=== PATIENT | female | born 1945 | race Caucasian/White ===

== ENCOUNTER → 2016-08-24 | Outpatient (CLI) | payer MEDICARE, BC ==
[~2016-08-24] MED LIST: ASPI325T4 PO; CARV12.52 PO; CHOL400C PO; FENO145T13 PO; FURO-92 PO; GLYB2.5T2 PO; INSU100C; INSU100V8 SQ; LEVO100C2 PO; MAGN400C PO; SITA100T PO; VALS160T3 PO
== END | disposition home or self-care (01) ==
LOC: WOUND 13:34
PROVIDERS: ATTEND Internal Medicine
DX: S01.80XD Unspecified open wound of other part of head, subsequent encounter (principal); E66.9 Obesity, unspecified; E78.5 Hyperlipidemia, unspecified; Z87.891 Personal history of nicotine dependence; Z85.828 Personal history of other malignant neoplasm of skin; Z72.89 Other problems related to lifestyle; Z68.35 Body mass index [BMI] 35.0-35.9, adult; X58.XXXD Exposure to other specified factors, subsequent encounter
CPT/HCPCS: 11100; G0463; WOU0463

== ENCOUNTER 2016-09-07 18:38 | Emergency (ER) | payer MEDICARE, BC ==
[~2016-09-07] VITALS: Ht 162.6 cm; Wt 92.8 kg
[2016-09-07] MEDS ORDERED: PLEASE ENTER HEIGHT AND WEIGHT MC SCH (19:00)
[2016-09-07] MEDS ORDERED: LIDOCAINE 2%, 20ML INFIL ONE (19:00)
[2016-09-07 19:29] LABS: ASPARTATE AMINO TRANSFERASE 21 U/L (15-37); BLOOD UREA NITROGEN 45 mg/dL (7-18)
[2016-09-07 21:47] VITALS: BP 143/60
== END 2016-09-07 21:50 | disposition home or self-care (01) ==
LOC: ED 21:36
DX: S06.0X1A Concussion with loss of consciousness of 30 minutes or less, initial encounter (principal); S01.01XA Laceration without foreign body of scalp, initial encounter; E78.5 Hyperlipidemia, unspecified; E03.9 Hypothyroidism, unspecified; E11.9 Type 2 diabetes mellitus without complications; I50.9 Heart failure, unspecified; N19 Unspecified kidney failure; R55 Syncope and collapse; Z90.49 Acquired absence of other specified parts of digestive tract; Z99.81 Dependence on supplemental oxygen; Z87.891 Personal history of nicotine dependence; W22.8XXA Striking against or struck by other objects, initial encounter; Y93.89 Activity, other specified; Y92.89 Other specified places as the place of occurrence of the external cause; Y99.8 Other external cause status
CPT/HCPCS: 36415; 70450; 71010; 80053; 85025; 93005; 99285

== ENCOUNTER → 2016-11-12 | Outpatient (CLI) | payer MEDICARE, BC ==
[2016-11-11 10:26] LABS: HEMATOCRIT 38.6 % (34.6-47.8); HEMOGLOBIN 12.3 g/dL (11.7-16.4); WHITE BLOOD COUNT 7.8 x10^3/uL (3.4-10)
[2016-11-11 10:38] LABS: BLOOD UREA NITROGEN 48 mg/dL (7-18)
[~2016-11-12] VITALS: Ht 162.6 cm; Wt 90.9 kg
[~2016-11-12] MED LIST changes: +ALLO100T30 PO; +ASPI325T17 PO; -ASPI325T4 PO; +ASPIRIN BUFFERED PO; +CHOL2000 PO; +FLUT15.88 NAS; +INSU100C SQ-INSULIN; +LEVO100T5 PO; +METO5TAB5 PO; +Oxygen INH
== END | disposition home or self-care (01) ==
LOC: CACL 09:55 → EDSTATUS 12:00
PROVIDERS: ATTEND Internal Medicine Cardiovascular Disease
DX: Z01.811 Encounter for preprocedural respiratory examination (principal); Z01.812 Encounter for preprocedural laboratory examination; R06.02 Shortness of breath; I27.2 Other secondary pulmonary hypertension; I12.9 Hypertensive chronic kidney disease with stage 1 through stage 4 chronic kidney disease, or unspecified chronic kidney disease; E11.22 Type 2 diabetes mellitus with diabetic chronic kidney disease; N18.4 Chronic kidney disease, stage 4 (severe); Z95.1 Presence of aortocoronary bypass graft; I50.32 Chronic diastolic (congestive) heart failure
CPT/HCPCS: 36415; 71020; 80048; 85025; 85610; 85730

== ENCOUNTER 2016-11-25 11:04 | Emergency (ER) | payer MEDICARE, BC ==
[~2016-11-25] VITALS: Ht 162.6 cm; Wt 94.1 kg
[2016-11-25 11:10] VITALS: BP 135/75
[2016-11-25] MEDS ORDERED: OXYcodone/APAP 5/325MG TABLET ONE (11:57)
[2016-11-25] MEDS ORDERED: OXYcodone/APAP 5/325MG TABLET PO ONE (12:00)
[2016-11-25 12:04] LABS: HEMATOCRIT 38.2 % (34.6-47.8); HEMOGLOBIN 12.2 g/dL (11.7-16.4); WHITE BLOOD COUNT 11.4 x10^3/uL (3.4-10)
[2016-11-25 12:15] LABS: BLOOD UREA NITROGEN 45 mg/dL (7-18)
[2016-11-25] MEDS ORDERED: ENOXAPARIN 100 MG/ML SQ ONE (13:30)
== END 2016-11-25 14:44 | disposition home or self-care (01) ==
LOC: ED 11:59 → EDIP 13:08 → UNDOADMIN 13:08 → ED 14:38
DX: S42.212A Unspecified displaced fracture of surgical neck of left humerus, initial encounter for closed fracture (principal); E78.5 Hyperlipidemia, unspecified; E11.9 Type 2 diabetes mellitus without complications; I50.9 Heart failure, unspecified; W05.1XXA Fall from non-moving nonmotorized scooter, initial encounter; Y93.89 Activity, other specified; Y92.098 Other place in other non-institutional residence as the place of occurrence of the external cause; Y99.8 Other external cause status; Z88.1 Allergy status to other antibiotic agents
CPT/HCPCS: 29105; 36415; 80048; 82040; 85025; 93005

== ENCOUNTER 2017-02-22 09:28 | Day surgery (SDC) | payer MEDICARE, BC ==
[2017-02-21 11:19] LABS: HEMATOCRIT 39.8 % (34.6-47.8); HEMOGLOBIN 12.8 g/dL (11.7-16.4); WHITE BLOOD COUNT 8.7 x10^3/uL (3.4-10)
[2017-02-21 11:48] LABS: BLOOD UREA NITROGEN 39 mg/dL (7-18)
[~2017-02-22] VITALS: Ht 162.6 cm; Wt 92.3 kg
[2017-02-22] MEDS ORDERED: FENTANYL PF 100 MCG/2ML ONE (10:12)
[2017-02-22] MEDS ORDERED: LIDOCAINE 2%, 20ML ONE (10:12)
[2017-02-22] MEDS ORDERED: MIDAZOLAM 1 MG/ML, 5ML ONE (10:12)
[2017-02-22] MEDS ORDERED: HEPARIN 1,000 UNITS/ML, 10ML ONE (10:12)
[2017-02-22] MEDS ORDERED: ADENOSINE IV PRN (12:00)
[2017-02-22] MEDS ORDERED: SODIUM CHLORIDE 0.9% IV PRN (12:00)
== END 2017-02-22 16:08 | disposition home or self-care (01) ==
LOC: CACL 09:28
PROVIDERS: ATTEND Internal Medicine Cardiovascular Disease
DX: I27.21 Secondary pulmonary arterial hypertension (principal); N18.4 Chronic kidney disease, stage 4 (severe); I12.9 Hypertensive chronic kidney disease with stage 1 through stage 4 chronic kidney disease, or unspecified chronic kidney disease; E11.22 Type 2 diabetes mellitus with diabetic chronic kidney disease; E78.5 Hyperlipidemia, unspecified; Z79.82 Long term (current) use of aspirin
CPT/HCPCS: 36415; 80048; 82962; 83880; 85025; 85610; 85730; 93451; 93463; 99156; 99157; C1769; C1894; J2250; J3010; J3490; J1644

== ENCOUNTER 2017-07-14 11:14 | Inpatient (IN) | payer BC, MEDICARE ==
[~2017-07-14] VITALS: Ht 162.6 cm; Wt 92.0 kg
[~2017-07-14 11:14] MED LIST changes: -FENO145T13 PO; +FENO145T30 PO
[2017-07-14] MEDS ORDERED: ALBUTEROL/IPRATROPIUM 2.5MG/0.5MG, 3 ML ONE (12:18)
[2017-07-14] MEDS ORDERED: ALBUTEROL/IPRATROPIUM 2.5MG/0.5MG, 3 ML NPPB ONE (12:30)
[2017-07-14] MEDS ORDERED: methylPREDNISolone SOD SUCC 125 MG/2 ML IVP ONE (12:30)
[2017-07-14] MEDS ORDERED: SODIUM CHLORIDE FLUSH 10ML SYR IVF ONE (12:30)
[2017-07-14 12:31] LABS: BASOPHILS # (AUTO) 0.01 x10^3/uL (0-0.1); BASOPHILS % (AUTO) 0 % (0-1); EOSINOPHILS # (AUTO) 0.13 x10^3/uL (0-0.4); EOSINOPHILS % (AUTO) 2 % (1-7); LYMPHOCYTES # (AUTO) 0.65 x10^3/uL (1-3.4); LYMPHOCYTES % (AUTO) 8 % (22-44); MD NO; MEAN CORPUSCULAR HEMOGLOBIN 28.6 pg (27.0-34.8); MEAN CORPUSCULAR HGB CONC 32.1 g/dL (32.4-35.8); MEAN CORPUSCULAR VOLUME 89.3 fL (80-100); MEAN PLATELET VOLUME 7.9 fL (7.4-10.4); MONOCYTES # (AUTO) 0.29 x10^3/uL (0.2-0.8); MONOCYTES % (AUTO) 3 % (2-9); NEUTROPHILS # (AUTO) 7.57 x10^3/uL (1.8-6.8); NEUTROPHILS % (AUTO) 88 % (42-75); PLATELET COUNT 232 x10^3/uL (130-400); RED BLOOD COUNT 3.98 x10^6/uL (3.82-5.3); RED CELL DISTRIBUTION WIDTH 18.5 % (9.6-15.2)
[2017-07-14] MEDS ORDERED: methylPREDNISolone SOD SUCC 125 MG/2 ML ONE (12:36)
[2017-07-14 12:43] LABS: ALBUMIN 3.6 g/dL (3.4-5.0); ANION GAP 5 mmol/L (5-15); CALCIUM 9.2 mg/dL (8.5-10.1); CHLORIDE 91 mmol/L (98-107); CREATININE 2.23 mg/dL (0.55-1.02)
[2017-07-14 12:48] LABS: TROPONIN I 0.113 ng/mL (0.000-0.045)
[2017-07-14] MEDS ORDERED: FUROSEMIDE 20 MG/2 ML ONE (13:53)
[2017-07-14] MEDS ORDERED: FUROSEMIDE 40 MG/4 ML IV ONE (14:00)
[2017-07-14] MEDS ORDERED: METO5TAB5 PO (14:06)
[2017-07-14] MEDS ORDERED: INSU100I32 SC (14:06)
[2017-07-14] MEDS ORDERED: TREP1TAB PO (14:16)
[2017-07-14] MEDS ORDERED: MACI10TA PO (14:16)
[2017-07-14 15:18] LABS: TROPONIN I 0.117 ng/mL (0.000-0.045)
[2017-07-14] MEDS ORDERED: hydrALAzine 20 MG/ML, 1ML IVPush PRN (15:30)
[2017-07-14] MEDS ORDERED: ONDANSETRON 2MG/ML, 2ML IVPush PRN (15:30)
[2017-07-14 16:09] LABS: ALBUMIN 3.7 g/dL (3.4-5.0); BILIRUBIN, DIRECT 0.7 mg/dL (0.1-0.2)
[2017-07-14 16:19] LABS: BILIRUBIN,INDIRECT 0.9 mg/dL (0.0-2.0); BILIRUBIN,TOTAL 1.6 mg/dL (0.2-1.0); FREE T4 (FREE THYROXINE) 0.7 ng/dL (0.76-1.46); THYROID STIMULATING HORMONE 7.01 mIU/L (0.358-3.740); TOTAL PROTEIN 8.2 g/dL (6.4-8.2)
[2017-07-14] MEDS ORDERED: TREPROSTINIL DIOLAMINE 1 MG PO SCH (18:00)
[2017-07-14] MEDS ORDERED: TEMPLATE NON-FORMULARY MED. ([Oxygen] 3 L) INH SCH (18:00)
[2017-07-14] MEDS ORDERED: POTASSIUM CHLORIDE 20 MEQ TAB.ER.PRT ONE (18:24)
[2017-07-14] MEDS ORDERED: FUROSEMIDE 40 MG/4 ML ONE (18:24)
[2017-07-14] MEDS: POTASSIUM CHLORIDE 20 MEQ TAB.ER.PRT PO SCH (18:30)
[2017-07-14] MEDS: FUROSEMIDE 40 MG/4 ML IV SCH (18:30)
[2017-07-14 20:37] LABS: TROPONIN I 0.107 ng/mL (0.000-0.045)
[2017-07-14] MEDS: INSULIN GLARGINE 100 UNITS/ML, PEN SQ-INSULIN SCH (21:00)
[2017-07-14] MEDS ORDERED: FUROSEMIDE 40 MG TABLET PO SCH (21:00)
[2017-07-14] MEDS: INSULIN LISPRO 100 UNITS/ML, PEN SQ-INSULIN SCH (21:00)
[2017-07-14 22:00] VITALS: BP 118/77
[2017-07-14] MEDS: TREPROSTINIL DIOLAMINE 1 MG PO SCH (23:03)
[2017-07-15 01:14] VITALS: BP 106/50
[2017-07-15 02:34] LABS: TROPONIN I 0.097 ng/mL (0.000-0.045)
[2017-07-15 05:04] LABS: MEAN CORPUSCULAR HEMOGLOBIN 27.9 pg (27.0-34.8); MEAN CORPUSCULAR HGB CONC 31.5 g/dL (32.4-35.8); MEAN CORPUSCULAR VOLUME 88.4 fL (80-100); MEAN PLATELET VOLUME 8.2 fL (7.4-10.4); PLATELET COUNT 214 x10^3/uL (130-400); RED BLOOD COUNT 3.68 x10^6/uL (3.82-5.3); RED CELL DISTRIBUTION WIDTH 18.2 % (9.6-15.2)
[2017-07-15 05:16] LABS: ALBUMIN 3.3 g/dL (3.4-5.0); ANION GAP 7 mmol/L (5-15); CALCIUM 9.2 mg/dL (8.5-10.1); CHLORIDE 89 mmol/L (98-107)
[2017-07-15 05:22] LABS: ALANINE AMINOTRANSFERASE 12 U/L (12-78); ALKALINE PHOSPHATASE 137 U/L (45-117); BILIRUBIN,TOTAL 1.3 mg/dL (0.2-1.0); CHOL/HDL RATIO 3.6; CHOLESTEROL, TOTAL 152 mg/dL (140-239); CREATININE 2.29 mg/dL (0.55-1.02); HDL CHOL % 28 % (28-40); HDL CHOLESTEROL (DIRECT) 42 mg/dL (40-60); LDL CHOLESTEROL,CALCULATED 92 mg/dL (54-169); LDL/HDL RATIO 2.2 (0.5-3.0); TOTAL PROTEIN 7.6 g/dL (6.4-8.2); TRIGLYCERIDES 89 mg/dL (50-200); VLDL CHOLESTEROL 18 mg/dL (0-25)
[2017-07-15 06:06] LABS: BASOPHILS # (AUTO) 0.02 x10^3/uL (0-0.1); BASOPHILS % (AUTO) 0 % (0-1); EOSINOPHILS % (AUTO) 0 % (1-7); LYMPHOCYTES % (AUTO) 5 % (22-44); MD SCAN; MONOCYTES # (AUTO) 0.03 x10^3/uL (0.2-0.8); MONOCYTES % (AUTO) 1 % (2-9); NEUTROPHILS % (AUTO) 94 % (42-75)
[2017-07-15] MEDS: INSULIN LISPRO 100 UNITS/ML, PEN SQ-INSULIN SCH ×4 (07:00→21:15)
[2017-07-15 07:15] LABS: HEMOGLOBIN A1C 6.7 % (4.2-6.3)
[2017-07-15 07:19] VITALS: BP 102/63
[2017-07-15] MEDS: ALLOPURINOL 100 MG TABLET PO SCH (08:15)
[2017-07-15] MEDS: FUROSEMIDE 40 MG/4 ML IV SCH ×2 (08:15→17:08)
[2017-07-15] MEDS: LEVOTHYROXINE 100 MCG TABLET PO SCH (08:15)
[2017-07-15] MEDS: POTASSIUM CHLORIDE 20 MEQ TAB.ER.PRT PO SCH (08:16)
[2017-07-15] MEDS: ASPIRIN 81 MG TABLET EC PO SCH (08:16)
[2017-07-15] MEDS: CHOLECALCIFEROL 1,000 UNIT TABLET PO SCH (08:16)
[2017-07-15] MEDS: TREPROSTINIL DIOLAMINE 1 MG PO SCH ×3 (08:17→22:13)
[2017-07-15] MEDS: METOLAZONE 5 MG TABLET PO SCH (08:17)
[2017-07-15] MEDS: MACITENTAN 10 MG HOMEMEDPO SCH (09:00)
[2017-07-15] MEDS: ENOXAPARIN 30 MG/0.3 ML SQ SCH (11:00)
[2017-07-15 14:18] VITALS: BP 116/66
[2017-07-15 21:10] VITALS: BP 109/64
[2017-07-15] MEDS: INSULIN GLARGINE 100 UNITS/ML, PEN SQ-INSULIN SCH (21:15)
[2017-07-16 02:24] VITALS: BP 130/76
[2017-07-16 05:10] LABS: ALBUMIN 3.4 g/dL (3.4-5.0); ANION GAP 5 mmol/L (5-15); CALCIUM 8.8 mg/dL (8.5-10.1); CHLORIDE 91 mmol/L (98-107)
[2017-07-16 05:14] LABS: ALANINE AMINOTRANSFERASE 14 U/L (12-78); ALKALINE PHOSPHATASE 117 U/L (45-117); CREATININE 2.52 mg/dL (0.55-1.02); TOTAL PROTEIN 7.3 g/dL (6.4-8.2)
[2017-07-16 05:15] LABS: BASOPHILS # (AUTO) 0.03 x10^3/uL (0-0.1); BASOPHILS % (AUTO) 0 % (0-1); EOSINOPHILS # (AUTO) 0.04 x10^3/uL (0-0.4); EOSINOPHILS % (AUTO) 0 % (1-7); LYMPHOCYTES % (AUTO) 7 % (22-44); MD NO; MEAN CORPUSCULAR HEMOGLOBIN 28.5 pg (27.0-34.8); MEAN CORPUSCULAR HGB CONC 31.8 g/dL (32.4-35.8); MEAN CORPUSCULAR VOLUME 89.8 fL (80-100); MONOCYTES # (AUTO) 0.47 x10^3/uL (0.2-0.8); MONOCYTES % (AUTO) 4 % (2-9); NEUTROPHILS # (AUTO) 10.27 x10^3/uL (1.8-6.8); NEUTROPHILS % (AUTO) 89 % (42-75); PLATELET COUNT 222 x10^3/uL (130-400); RED BLOOD COUNT 3.61 x10^6/uL (3.82-5.3); RED CELL DISTRIBUTION WIDTH 18.9 % (9.6-15.2)
[2017-07-16] MEDS: TREPROSTINIL DIOLAMINE 1 MG PO SCH ×3 (05:57→21:00)
[2017-07-16] MEDS: INSULIN LISPRO 100 UNITS/ML, PEN SQ-INSULIN SCH ×4 (07:00→21:00)
[2017-07-16] MEDS: FUROSEMIDE 40 MG/4 ML IV SCH (07:30)
[2017-07-16] MEDS: POTASSIUM CHLORIDE 20 MEQ TAB.ER.PRT PO SCH (08:00)
[2017-07-16 09:00] VITALS: BP 108/67
[2017-07-16] MEDS: ALLOPURINOL 100 MG TABLET PO SCH (09:00)
[2017-07-16] MEDS: CHOLECALCIFEROL 1,000 UNIT TABLET PO SCH (09:00)
[2017-07-16] MEDS: INSULIN GLARGINE 100 UNITS/ML, PEN SQ-INSULIN SCH ×2 (09:00→21:00)
[2017-07-16] MEDS: MACITENTAN 10 MG HOMEMEDPO SCH (09:00)
[2017-07-16] MEDS: LEVOTHYROXINE 100 MCG TABLET PO SCH (09:00)
[2017-07-16] MEDS: ASPIRIN 81 MG TABLET EC PO SCH (09:00)
[2017-07-16 09:51] LABS: CULTURE INDICATED? YES; MICROSCOPIC INDICATED
[2017-07-16] MEDS: ENOXAPARIN 30 MG/0.3 ML SQ SCH (11:00)
[2017-07-16 12:50] VITALS: BP 130/68
[2017-07-16 19:23] VITALS: BP 108/66
[2017-07-17 00:43] VITALS: BP 115/66
[2017-07-17 05:09] LABS: ALBUMIN 3.3 g/dL (3.4-5.0); ANION GAP 7 mmol/L (5-15); CALCIUM 8.5 mg/dL (8.5-10.1); CHLORIDE 90 mmol/L (98-107)
[2017-07-17 05:14] LABS: % IRON SATURATION 8 % (20-55); ALANINE AMINOTRANSFERASE 13 U/L (12-78); ALKALINE PHOSPHATASE 105 U/L (45-117); BILIRUBIN,TOTAL 1.1 mg/dL (0.2-1.0); CREATININE 2.51 mg/dL (0.55-1.02); IRON LEVEL 25 mcg/dL (50-170); TOTAL IRON BINDING CAPACITY 330 mcg/dL (250-450); TOTAL PROTEIN 6.8 g/dL (6.4-8.2)
[2017-07-17] MEDS: INSULIN LISPRO 100 UNITS/ML, PEN SQ-INSULIN SCH ×4 (07:00→20:04)
[2017-07-17] MEDS: ASPIRIN 81 MG TABLET EC PO SCH (08:09)
[2017-07-17] MEDS: INSULIN GLARGINE 100 UNITS/ML, PEN SQ-INSULIN SCH ×2 (08:09→20:03)
[2017-07-17] MEDS: ALLOPURINOL 100 MG TABLET PO SCH (08:09)
[2017-07-17] MEDS: POTASSIUM CHLORIDE 20 MEQ TAB.ER.PRT PO SCH (08:09)
[2017-07-17] MEDS: CHOLECALCIFEROL 1,000 UNIT TABLET PO SCH (08:09)
[2017-07-17] MEDS: TREPROSTINIL DIOLAMINE 1 MG PO SCH ×3 (08:11→20:04)
[2017-07-17 08:53] VITALS: BP 129/66
[2017-07-17] MEDS: LEVOTHYROXINE 100 MCG TABLET PO SCH (10:02)
[2017-07-17] MEDS: ENOXAPARIN 30 MG/0.3 ML SQ SCH (11:59)
[2017-07-17 13:35] VITALS: BP 102/63
[2017-07-17] MEDS: FERROUS SULFATE 325 MG TABLET PO SCH (17:19)
[2017-07-17] MEDS: CEFTRIAXONE 2 GM in DEXTROSE 5% 50 ML IV SCH (17:20)
[2017-07-17 21:46] VITALS: BP 177/82
[2017-07-18 00:05] VITALS: BP 120/70
[2017-07-18 05:00] LABS: BASOPHILS # (AUTO) 0.02 x10^3/uL (0-0.1); BASOPHILS % (AUTO) 0 % (0-1); EOSINOPHILS # (AUTO) 0.29 x10^3/uL (0-0.4); EOSINOPHILS % (AUTO) 3 % (1-7); LYMPHOCYTES # (AUTO) 0.97 x10^3/uL (1-3.4); LYMPHOCYTES % (AUTO) 11 % (22-44); MD NO; MEAN CORPUSCULAR HEMOGLOBIN 28.7 pg (27.0-34.8); MEAN CORPUSCULAR HGB CONC 32.3 g/dL (32.4-35.8); MEAN CORPUSCULAR VOLUME 88.7 fL (80-100); MONOCYTES # (AUTO) 0.39 x10^3/uL (0.2-0.8); MONOCYTES % (AUTO) 4 % (2-9); NEUTROPHILS % (AUTO) 81 % (42-75); PLATELET COUNT 201 x10^3/uL (130-400); RED BLOOD COUNT 3.45 x10^6/uL (3.82-5.3); RED CELL DISTRIBUTION WIDTH 18.1 % (9.6-15.2)
[2017-07-18 05:10] LABS: ALANINE AMINOTRANSFERASE 15 U/L (12-78); ALBUMIN 3.1 g/dL (3.4-5.0); ANION GAP 9 mmol/L (5-15); CALCIUM 8.4 mg/dL (8.5-10.1); CHLORIDE 90 mmol/L (98-107); CREATININE 2.22 mg/dL (0.55-1.02)
[2017-07-18 05:12] LABS: ALKALINE PHOSPHATASE 102 U/L (45-117); BILIRUBIN,TOTAL 0.7 mg/dL (0.2-1.0); TOTAL PROTEIN 6.8 g/dL (6.4-8.2)
[2017-07-18 07:17] VITALS: BP 124/63
[2017-07-18] MEDS: INSULIN GLARGINE 100 UNITS/ML, PEN SQ-INSULIN SCH ×2 (08:35→20:26)
[2017-07-18] MEDS: INSULIN LISPRO 100 UNITS/ML, PEN SQ-INSULIN SCH ×4 (08:35→20:25)
[2017-07-18] MEDS: ASPIRIN 81 MG TABLET EC PO SCH (08:36)
[2017-07-18] MEDS: CHOLECALCIFEROL 1,000 UNIT TABLET PO SCH (08:36)
[2017-07-18] MEDS: LEVOTHYROXINE 100 MCG TABLET PO SCH (08:36)
[2017-07-18] MEDS: POTASSIUM CHLORIDE 20 MEQ TAB.ER.PRT PO SCH (08:36)
[2017-07-18] MEDS: TREPROSTINIL DIOLAMINE 1 MG PO SCH ×3 (08:37→20:17)
[2017-07-18] MEDS: ALLOPURINOL 100 MG TABLET PO SCH (08:37)
[2017-07-18] MEDS: METOLAZONE 5 MG TABLET PO SCH (09:00)
[2017-07-18] MEDS ORDERED: FUROSEMIDE 40 MG/4 ML IV ONE (10:00)
[2017-07-18] MEDS: ENOXAPARIN 30 MG/0.3 ML SQ SCH (10:25)
[2017-07-18 14:00] VITALS: BP 125/67
[2017-07-18] MEDS: FERROUS SULFATE 325 MG TABLET PO SCH (16:58)
[2017-07-18] MEDS: CEFTRIAXONE 2 GM in DEXTROSE 5% 50 ML IV SCH (16:58)
[2017-07-18 20:20] VITALS: BP 110/53
[2017-07-19 00:04] VITALS: BP 114/62
[2017-07-19 05:32] LABS: BASOPHILS # (AUTO) 0.05 x10^3/uL (0-0.1); BASOPHILS % (AUTO) 1 % (0-1); EOSINOPHILS # (AUTO) 0.33 x10^3/uL (0-0.4); EOSINOPHILS % (AUTO) 4 % (1-7); LYMPHOCYTES # (AUTO) 0.77 x10^3/uL (1-3.4); LYMPHOCYTES % (AUTO) 9 % (22-44); MD NO; MEAN CORPUSCULAR HGB CONC 32.7 g/dL (32.4-35.8); MEAN CORPUSCULAR VOLUME 88.6 fL (80-100); MEAN PLATELET VOLUME 7.9 fL (7.4-10.4); MONOCYTES # (AUTO) 0.48 x10^3/uL (0.2-0.8); MONOCYTES % (AUTO) 5 % (2-9); NEUTROPHILS % (AUTO) 82 % (42-75); PLATELET COUNT 190 x10^3/uL (130-400); RED BLOOD COUNT 3.75 x10^6/uL (3.82-5.3); RED CELL DISTRIBUTION WIDTH 18.3 % (9.6-15.2)
[2017-07-19 05:38] LABS: ALANINE AMINOTRANSFERASE 14 U/L (12-78); ALBUMIN 3.3 g/dL (3.4-5.0); ANION GAP 6 mmol/L (5-15); CALCIUM 8.9 mg/dL (8.5-10.1); CHLORIDE 91 mmol/L (98-107)
[2017-07-19 05:41] LABS: ALKALINE PHOSPHATASE 109 U/L (45-117); BILIRUBIN,TOTAL 0.9 mg/dL (0.2-1.0); CREATININE 2.14 mg/dL (0.55-1.02); TOTAL PROTEIN 7.3 g/dL (6.4-8.2)
[2017-07-19] MEDS: INSULIN LISPRO 100 UNITS/ML, PEN SQ-INSULIN SCH ×4 (07:00→20:51)
[2017-07-19] MEDS: INSULIN GLARGINE 100 UNITS/ML, PEN SQ-INSULIN SCH ×2 (07:38→20:51)
[2017-07-19] MEDS: POTASSIUM CHLORIDE 20 MEQ TAB.ER.PRT PO SCH (08:06)
[2017-07-19] MEDS: TREPROSTINIL DIOLAMINE 1 MG PO SCH ×3 (08:07→20:45)
[2017-07-19] MEDS: LEVOTHYROXINE 100 MCG TABLET PO SCH (08:07)
[2017-07-19] MEDS: ALLOPURINOL 100 MG TABLET PO SCH (08:07)
[2017-07-19] MEDS: ASPIRIN 81 MG TABLET EC PO SCH (08:07)
[2017-07-19] MEDS: CHOLECALCIFEROL 1,000 UNIT TABLET PO SCH (08:07)
[2017-07-19 08:20] VITALS: BP 114/64
[2017-07-19] MEDS ORDERED: AcetaZOLAMIDE INJ 500 MG IVPush SCH (08:30)
[2017-07-19] MEDS: ENOXAPARIN 30 MG/0.3 ML SQ SCH (11:50)
[2017-07-19] MEDS ORDERED: FUROSEMIDE 40 MG/4 ML IV ONE (14:00)
[2017-07-19 15:06] VITALS: BP 124/73
[2017-07-19] MEDS: FERROUS SULFATE 325 MG TABLET PO SCH (16:30)
[2017-07-19 18:21] VITALS: BP 111/54
[2017-07-19] MEDS: CEFTRIAXONE 2 GM in DEXTROSE 5% 50 ML IV SCH (18:45)
[2017-07-20 01:08] VITALS: BP 121/69
[2017-07-20 05:17] LABS: BASOPHILS # (AUTO) 0.05 x10^3/uL (0-0.1); BASOPHILS % (AUTO) 1 % (0-1); EOSINOPHILS # (AUTO) 0.27 x10^3/uL (0-0.4); EOSINOPHILS % (AUTO) 4 % (1-7); LYMPHOCYTES # (AUTO) 0.76 x10^3/uL (1-3.4); LYMPHOCYTES % (AUTO) 10 % (22-44); MD NO; MEAN CORPUSCULAR HEMOGLOBIN 27.9 pg (27.0-34.8); MEAN CORPUSCULAR HGB CONC 31.8 g/dL (32.4-35.8); MEAN CORPUSCULAR VOLUME 87.9 fL (80-100); MEAN PLATELET VOLUME 8.5 fL (7.4-10.4); MONOCYTES # (AUTO) 0.43 x10^3/uL (0.2-0.8); MONOCYTES % (AUTO) 6 % (2-9); NEUTROPHILS # (AUTO) 6.24 x10^3/uL (1.8-6.8); NEUTROPHILS % (AUTO) 81 % (42-75); PLATELET COUNT 177 x10^3/uL (130-400); RED CELL DISTRIBUTION WIDTH 18.3 % (9.6-15.2)
[2017-07-20 05:25] LABS: ALANINE AMINOTRANSFERASE 11 U/L (12-78); ALBUMIN 3.2 g/dL (3.4-5.0); ANION GAP 5 mmol/L (5-15); CALCIUM 8.9 mg/dL (8.5-10.1); CHLORIDE 94 mmol/L (98-107); CREATININE 2.07 mg/dL (0.55-1.02)
[2017-07-20 05:27] LABS: ALKALINE PHOSPHATASE 110 U/L (45-117); BILIRUBIN,TOTAL 0.8 mg/dL (0.2-1.0)
[2017-07-20] MEDS: INSULIN LISPRO 100 UNITS/ML, PEN SQ-INSULIN SCH ×4 (07:00→20:55)
[2017-07-20 07:38] VITALS: BP 110/68
[2017-07-20] MEDS: ASPIRIN 81 MG TABLET EC PO SCH (08:52)
[2017-07-20] MEDS: LEVOTHYROXINE 100 MCG TABLET PO SCH (08:52)
[2017-07-20] MEDS: POTASSIUM CHLORIDE 20 MEQ TAB.ER.PRT PO SCH (08:52)
[2017-07-20] MEDS: CHOLECALCIFEROL 1,000 UNIT TABLET PO SCH (08:52)
[2017-07-20] MEDS: ALLOPURINOL 100 MG TABLET PO SCH (08:53)
[2017-07-20] MEDS: INSULIN GLARGINE 100 UNITS/ML, PEN SQ-INSULIN SCH ×2 (08:54→20:54)
[2017-07-20] MEDS: LORATADINE 10 MG HOMEMEDPO SCH (08:54)
[2017-07-20] MEDS: TREPROSTINIL DIOLAMINE 1 MG PO SCH ×3 (08:55→20:53)
[2017-07-20] MEDS ORDERED: AcetaZOLAMIDE INJ 500 MG IVPush SCH (09:00)
[2017-07-20] MEDS: ENOXAPARIN 30 MG/0.3 ML SQ SCH (12:03)
[2017-07-20 13:00] VITALS: BP 96/56
[2017-07-20] MEDS ORDERED: FUROSEMIDE 40 MG/4 ML IV ONE (14:00)
[2017-07-20] MEDS: FERROUS SULFATE 325 MG TABLET PO SCH (16:36)
[2017-07-20] MEDS: CEFTRIAXONE 2 GM in DEXTROSE 5% 50 ML IV SCH (17:28)
[2017-07-20 19:34] VITALS: BP 118/62
[2017-07-21 00:19] VITALS: BP 104/89
[2017-07-21 05:33] LABS: ALBUMIN 3.2 g/dL (3.4-5.0); ANION GAP 5 mmol/L (5-15); CALCIUM 9.1 mg/dL (8.5-10.1); CHLORIDE 93 mmol/L (98-107)
[2017-07-21 05:37] LABS: ALANINE AMINOTRANSFERASE 13 U/L (12-78); ALKALINE PHOSPHATASE 110 U/L (45-117); BILIRUBIN,TOTAL 0.8 mg/dL (0.2-1.0); CREATININE 2.26 mg/dL (0.55-1.02); TOTAL PROTEIN 7.2 g/dL (6.4-8.2)
[2017-07-21] MEDS: INSULIN LISPRO 100 UNITS/ML, PEN SQ-INSULIN SCH ×4 (07:00→20:38)
[2017-07-21 08:29] VITALS: BP 95/53
[2017-07-21] MEDS ORDERED: AcetaZOLAMIDE INJ 500 MG IVPush SCH (08:30)
[2017-07-21 08:54] VITALS: BP 103/55
[2017-07-21] MEDS: ALLOPURINOL 100 MG TABLET PO SCH (08:57)
[2017-07-21] MEDS: POTASSIUM CHLORIDE 20 MEQ TAB.ER.PRT PO SCH (08:57)
[2017-07-21] MEDS: INSULIN GLARGINE 100 UNITS/ML, PEN SQ-INSULIN SCH ×2 (08:57→20:37)
[2017-07-21] MEDS: ASPIRIN 81 MG TABLET EC PO SCH (08:57)
[2017-07-21] MEDS: CHOLECALCIFEROL 1,000 UNIT TABLET PO SCH (08:57)
[2017-07-21] MEDS: LEVOTHYROXINE 100 MCG TABLET PO SCH (08:57)
[2017-07-21] MEDS: TREPROSTINIL DIOLAMINE 1 MG PO SCH ×3 (09:00→20:38)
[2017-07-21] MEDS: LORATADINE 10 MG HOMEMEDPO SCH (09:00)
[2017-07-21 12:27] VITALS: BP 117/63
[2017-07-21] MEDS: ENOXAPARIN 30 MG/0.3 ML SQ SCH (12:32)
[2017-07-21] MEDS: FERROUS SULFATE 325 MG TABLET PO SCH (17:35)
[2017-07-21] MEDS: CEFTRIAXONE 2 GM in DEXTROSE 5% 50 ML IV SCH (18:08)
[2017-07-21 19:14] VITALS: BP 113/54
[2017-07-22 00:27] VITALS: BP 112/64
[2017-07-22 05:27] LABS: CHLORIDE 93 mmol/L (98-107)
[2017-07-22 05:36] LABS: ALANINE AMINOTRANSFERASE 12 U/L (12-78); ALBUMIN 3.2 g/dL (3.4-5.0); ALKALINE PHOSPHATASE 109 U/L (45-117); ANION GAP 7 mmol/L (5-15); BILIRUBIN,TOTAL 0.9 mg/dL (0.2-1.0); CALCIUM 8.8 mg/dL (8.5-10.1); CREATININE 2.04 mg/dL (0.55-1.02)
[2017-07-22 06:41] VITALS: BP 109/57
[2017-07-22] MEDS: INSULIN LISPRO 100 UNITS/ML, PEN SQ-INSULIN SCH ×4 (07:00→20:33)
[2017-07-22] MEDS: POTASSIUM CHLORIDE 20 MEQ TAB.ER.PRT PO SCH (08:54)
[2017-07-22] MEDS: INSULIN GLARGINE 100 UNITS/ML, PEN SQ-INSULIN SCH ×2 (08:54→21:07)
[2017-07-22] MEDS: ASPIRIN 81 MG TABLET EC PO SCH (08:55)
[2017-07-22] MEDS: LORATADINE 10 MG HOMEMEDPO SCH (08:55)
[2017-07-22] MEDS: LEVOTHYROXINE 100 MCG TABLET PO SCH (08:55)
[2017-07-22] MEDS: TREPROSTINIL DIOLAMINE 1 MG PO SCH ×3 (08:55→21:00)
[2017-07-22] MEDS: ALLOPURINOL 100 MG TABLET PO SCH (08:55)
[2017-07-22] MEDS: CHOLECALCIFEROL 1,000 UNIT TABLET PO SCH (08:55)
[2017-07-22] MEDS: AcetaZOLAMIDE INJ 500 MG IVPush SCH (09:59)
[2017-07-22] MEDS: FERROUS SULFATE 325 MG TABLET PO SCH ×2 (12:00→16:25)
[2017-07-22] MEDS: ENOXAPARIN 30 MG/0.3 ML SQ SCH (13:01)
[2017-07-22 14:01] VITALS: BP 118/53
[2017-07-22] MEDS ORDERED: FUROSEMIDE 20 MG/2 ML IV ONE (17:00)
[2017-07-22] MEDS: CEFTRIAXONE 2 GM in DEXTROSE 5% 50 ML IV SCH (17:58)
[2017-07-22 19:01] VITALS: BP 122/65
[2017-07-23 01:15] VITALS: BP 110/64
[2017-07-23 04:53] LABS: ALBUMIN 3.1 g/dL (3.4-5.0); ANION GAP 7 mmol/L (5-15); CALCIUM 8.8 mg/dL (8.5-10.1); CHLORIDE 95 mmol/L (98-107); CREATININE 1.92 mg/dL (0.55-1.02)
[2017-07-23 04:55] LABS: ALANINE AMINOTRANSFERASE 10 U/L (12-78); ALKALINE PHOSPHATASE 111 U/L (45-117); BILIRUBIN,TOTAL 0.7 mg/dL (0.2-1.0); TOTAL PROTEIN 6.9 g/dL (6.4-8.2)
[2017-07-23] MEDS: INSULIN LISPRO 100 UNITS/ML, PEN SQ-INSULIN SCH ×4 (07:12→20:30)
[2017-07-23 08:45] VITALS: BP 118/58
[2017-07-23] MEDS: LORATADINE 10 MG HOMEMEDPO SCH (09:00)
[2017-07-23] MEDS: CHOLECALCIFEROL 1,000 UNIT TABLET PO SCH (09:14)
[2017-07-23] MEDS: LEVOTHYROXINE 100 MCG TABLET PO SCH (09:15)
[2017-07-23] MEDS: ASPIRIN 81 MG TABLET EC PO SCH (09:15)
[2017-07-23] MEDS: POTASSIUM CHLORIDE 20 MEQ TAB.ER.PRT PO SCH (09:15)
[2017-07-23] MEDS: ALLOPURINOL 100 MG TABLET PO SCH (09:15)
[2017-07-23] MEDS: ENOXAPARIN 30 MG/0.3 ML SQ SCH (09:16)
[2017-07-23] MEDS: AcetaZOLAMIDE INJ 500 MG IVPush SCH (09:17)
[2017-07-23] MEDS: TREPROSTINIL DIOLAMINE 1 MG PO SCH ×3 (09:17→20:30)
[2017-07-23] MEDS: INSULIN GLARGINE 100 UNITS/ML, PEN SQ-INSULIN SCH ×2 (11:41→20:30)
[2017-07-23] MEDS: FERROUS SULFATE 325 MG TABLET PO SCH ×2 (11:42→17:24)
[2017-07-23 14:53] VITALS: BP 108/59
[2017-07-23] MEDS: CEFTRIAXONE 2 GM in DEXTROSE 5% 50 ML IV SCH (17:25)
[2017-07-23 20:00] VITALS: BP 106/62
[2017-07-24 02:54] VITALS: BP 113/62
[2017-07-24 05:10] LABS: ALANINE AMINOTRANSFERASE 12 U/L (12-78); ALBUMIN 3.2 g/dL (3.4-5.0); ANION GAP 5 mmol/L (5-15); CALCIUM 8.8 mg/dL (8.5-10.1); CHLORIDE 93 mmol/L (98-107); CREATININE 1.97 mg/dL (0.55-1.02)
[2017-07-24 05:11] LABS: ALKALINE PHOSPHATASE 119 U/L (45-117); BILIRUBIN,TOTAL 0.8 mg/dL (0.2-1.0); TOTAL PROTEIN 7.1 g/dL (6.4-8.2)
[2017-07-24] MEDS: INSULIN LISPRO 100 UNITS/ML, PEN SQ-INSULIN SCH ×4 (07:00→20:53)
[2017-07-24 07:38] VITALS: BP 111/59
[2017-07-24] MEDS: ASPIRIN 81 MG TABLET EC PO SCH (07:53)
[2017-07-24] MEDS: CHOLECALCIFEROL 1,000 UNIT TABLET PO SCH (07:54)
[2017-07-24] MEDS: POTASSIUM CHLORIDE 20 MEQ TAB.ER.PRT PO SCH (07:54)
[2017-07-24] MEDS: AcetaZOLAMIDE INJ 500 MG IVPush SCH (07:54)
[2017-07-24] MEDS: INSULIN GLARGINE 100 UNITS/ML, PEN SQ-INSULIN SCH ×2 (07:54→21:07)
[2017-07-24] MEDS: ALLOPURINOL 100 MG TABLET PO SCH (07:54)
[2017-07-24] MEDS: LEVOTHYROXINE 100 MCG TABLET PO SCH (07:54)
[2017-07-24] MEDS: LORATADINE 10 MG HOMEMEDPO SCH (07:55)
[2017-07-24] MEDS: TREPROSTINIL DIOLAMINE 1 MG PO SCH ×3 (08:00→21:00)
[2017-07-24 11:26] LABS: ALANINE AMINOTRANSFERASE 11 U/L (12-78); ALBUMIN 3.2 g/dL (3.4-5.0); ANION GAP 5 mmol/L (5-15); CALCIUM 8.8 mg/dL (8.5-10.1); CHLORIDE 95 mmol/L (98-107); CREATININE 1.95 mg/dL (0.55-1.02)
[2017-07-24 11:29] LABS: ALKALINE PHOSPHATASE 120 U/L (45-117); BILIRUBIN,TOTAL 0.5 mg/dL (0.2-1.0); TOTAL PROTEIN 7.3 g/dL (6.4-8.2)
[2017-07-24] MEDS: ENOXAPARIN 30 MG/0.3 ML SQ SCH (11:33)
[2017-07-24] MEDS: FERROUS SULFATE 325 MG TABLET PO SCH ×2 (12:41→16:41)
[2017-07-24 13:33] VITALS: BP 111/61
[2017-07-24 18:57] VITALS: BP 106/62
[2017-07-24] MEDS: SULFAMETH./TRIMETHOPRIM DS 800MG/160MG TABLET PO SCH (21:07)
[2017-07-24] MEDS: HEPARIN 5,000 UNITS/ML, 1ML SQ SCH (21:08)
[2017-07-25 01:10] VITALS: BP 120/62
[2017-07-25 05:23] LABS: CHLORIDE 96 mmol/L (98-107)
[2017-07-25 05:39] LABS: ALANINE AMINOTRANSFERASE 12 U/L (12-78); ALBUMIN 3.3 g/dL (3.4-5.0); ALKALINE PHOSPHATASE 121 U/L (45-117); ANION GAP 6 mmol/L (5-15); BILIRUBIN,TOTAL 0.9 mg/dL (0.2-1.0); CREATININE 1.95 mg/dL (0.55-1.02); TOTAL PROTEIN 7.6 g/dL (6.4-8.2)
[2017-07-25] MEDS: HEPARIN 5,000 UNITS/ML, 1ML SQ SCH ×3 (06:08→21:47)
[2017-07-25] MEDS: INSULIN LISPRO 100 UNITS/ML, PEN SQ-INSULIN SCH ×4 (07:00→21:48)
[2017-07-25 07:25] VITALS: BP 108/68
[2017-07-25] MEDS ORDERED: AcetaZOLAMIDE INJ 500 MG IVPush ONE (09:00)
[2017-07-25] MEDS: SULFAMETH./TRIMETHOPRIM DS 800MG/160MG TABLET PO SCH ×2 (09:01→21:48)
[2017-07-25] MEDS: ALLOPURINOL 100 MG TABLET PO SCH (09:02)
[2017-07-25] MEDS: CHOLECALCIFEROL 1,000 UNIT TABLET PO SCH (09:02)
[2017-07-25] MEDS: POTASSIUM CHLORIDE 20 MEQ TAB.ER.PRT PO SCH (09:02)
[2017-07-25] MEDS: LORATADINE 10 MG TABLET HOMEMEDPO SCH (09:02)
[2017-07-25] MEDS: LEVOTHYROXINE 100 MCG TABLET PO SCH (09:02)
[2017-07-25] MEDS: INSULIN GLARGINE 100 UNITS/ML, PEN SQ-INSULIN SCH ×2 (09:03→21:48)
[2017-07-25] MEDS: TREPROSTINIL DIOLAMINE 1 MG PO SCH ×3 (09:04→21:49)
[2017-07-25] MEDS ORDERED: FUROSEMIDE 40 MG TABLET ONE (09:18)
[2017-07-25] MEDS: ASPIRIN 81 MG TABLET EC PO SCH (09:20)
[2017-07-25 13:25] VITALS: BP 104/58
[2017-07-25] MEDS: FERROUS SULFATE 325 MG TABLET PO SCH ×2 (13:50→18:05)
[2017-07-25] MEDS ORDERED: FUROSEMIDE 40 MG/4 ML IV ONE (16:00)
[2017-07-25 18:34] VITALS: BP 109/65
[2017-07-26 01:11] VITALS: BP 100/62
[2017-07-26 05:04] LABS: ALBUMIN 3.1 g/dL (3.4-5.0); ANION GAP 5 mmol/L (5-15); CALCIUM 9.2 mg/dL (8.5-10.1); CHLORIDE 98 mmol/L (98-107)
[2017-07-26 05:07] LABS: ALANINE AMINOTRANSFERASE 12 U/L (12-78); ALKALINE PHOSPHATASE 114 U/L (45-117); BILIRUBIN,TOTAL 0.7 mg/dL (0.2-1.0); CREATININE 2.15 mg/dL (0.55-1.02)
[2017-07-26] MEDS: HEPARIN 5,000 UNITS/ML, 1ML SQ SCH ×3 (05:36→21:17)
[2017-07-26] MEDS: TORSEMIDE 20 MG TABLET PO SCH ×3 (07:00→09:00)
[2017-07-26] MEDS: INSULIN LISPRO 100 UNITS/ML, PEN SQ-INSULIN SCH ×4 (07:00→21:17)
[2017-07-26 07:27] VITALS: BP 106/61
[2017-07-26] MEDS: ALLOPURINOL 100 MG TABLET PO SCH (08:20)
[2017-07-26] MEDS: ASPIRIN 81 MG TABLET EC PO SCH (08:20)
[2017-07-26] MEDS: LEVOTHYROXINE 100 MCG TABLET PO SCH (08:20)
[2017-07-26] MEDS: LORATADINE 10 MG TABLET HOMEMEDPO SCH (08:21)
[2017-07-26] MEDS: POTASSIUM CHLORIDE 20 MEQ TAB.ER.PRT PO SCH (08:22)
[2017-07-26] MEDS: CHOLECALCIFEROL 1,000 UNIT TABLET PO SCH (08:22)
[2017-07-26] MEDS: SULFAMETH./TRIMETHOPRIM DS 800MG/160MG TABLET PO SCH (08:22)
[2017-07-26] MEDS: INSULIN GLARGINE 100 UNITS/ML, PEN SQ-INSULIN SCH ×2 (08:23→21:17)
[2017-07-26] MEDS: TREPROSTINIL DIOLAMINE 1 MG PO SCH ×3 (08:23→21:18)
[2017-07-26] MEDS: FERROUS SULFATE 325 MG TABLET PO SCH ×2 (11:48→17:09)
[2017-07-26 13:04] VITALS: BP 116/67
[2017-07-26 19:20] VITALS: BP 106/66
[2017-07-27 01:53] VITALS: BP 131/67
[2017-07-27] MEDS: HEPARIN 5,000 UNITS/ML, 1ML SQ SCH ×3 (05:03→22:11)
[2017-07-27 05:12] LABS: CALCIUM 8.8 mg/dL (8.5-10.1); CHLORIDE 98 mmol/L (98-107)
[2017-07-27 05:18] LABS: ALANINE AMINOTRANSFERASE 11 U/L (12-78); ALKALINE PHOSPHATASE 112 U/L (45-117); ANION GAP 7 mmol/L (5-15); BILIRUBIN,TOTAL 0.8 mg/dL (0.2-1.0); CREATININE 2.36 mg/dL (0.55-1.02); TOTAL PROTEIN 6.8 g/dL (6.4-8.2)
[2017-07-27 07:06] VITALS: BP 111/68
[2017-07-27] MEDS: INSULIN LISPRO 100 UNITS/ML, PEN SQ-INSULIN SCH ×4 (08:17→22:13)
[2017-07-27] MEDS: LEVOTHYROXINE 100 MCG TABLET PO SCH (09:23)
[2017-07-27] MEDS: ALLOPURINOL 100 MG TABLET PO SCH (09:23)
[2017-07-27] MEDS: POTASSIUM CHLORIDE 20 MEQ TAB.ER.PRT PO SCH (09:23)
[2017-07-27] MEDS: CHOLECALCIFEROL 1,000 UNIT TABLET PO SCH (09:23)
[2017-07-27] MEDS: TORSEMIDE 20 MG TABLET PO SCH (09:24)
[2017-07-27] MEDS: ASPIRIN 81 MG TABLET EC PO SCH (09:24)
[2017-07-27] MEDS: INSULIN GLARGINE 100 UNITS/ML, PEN SQ-INSULIN SCH ×2 (09:25→22:12)
[2017-07-27] MEDS: LORATADINE 10 MG TABLET HOMEMEDPO SCH (09:25)
[2017-07-27] MEDS: TREPROSTINIL DIOLAMINE 1 MG PO SCH ×3 (09:26→22:12)
[2017-07-27] MEDS: FERROUS SULFATE 325 MG TABLET PO SCH ×2 (12:48→17:27)
[2017-07-27 14:00] VITALS: BP 116/71
[2017-07-27] MEDS ORDERED: FUROSEMIDE 40 MG/4 ML IV ONE (14:00)
[2017-07-27] MEDS: FLUTICASONE NASAL SPRAY 16GM NAS SCH ×2 (14:12→22:12)
[2017-07-27 19:39] VITALS: BP 112/66
[2017-07-28 01:47] VITALS: BP 119/63
[2017-07-28 05:00] LABS: ALBUMIN 3.1 g/dL (3.4-5.0); ANION GAP 7 mmol/L (5-15); CALCIUM 8.3 mg/dL (8.5-10.1); CHLORIDE 97 mmol/L (98-107)
[2017-07-28 05:05] LABS: ALANINE AMINOTRANSFERASE 13 U/L (12-78); ALKALINE PHOSPHATASE 115 U/L (45-117); BILIRUBIN,TOTAL 0.7 mg/dL (0.2-1.0); CREATININE 2.41 mg/dL (0.55-1.02); TOTAL PROTEIN 6.7 g/dL (6.4-8.2)
[2017-07-28] MEDS: HEPARIN 5,000 UNITS/ML, 1ML SQ SCH ×3 (06:19→22:34)
[2017-07-28] MEDS: TREPROSTINIL DIOLAMINE 1 MG PO SCH ×3 (06:19→22:00)
[2017-07-28] MEDS: LEVOTHYROXINE 100 MCG TABLET PO SCH (06:19)
[2017-07-28] MEDS: INSULIN LISPRO 100 UNITS/ML, PEN SQ-INSULIN SCH ×4 (07:40→21:31)
[2017-07-28 08:30] VITALS: BP 112/58
[2017-07-28] MEDS: CHOLECALCIFEROL 1,000 UNIT TABLET PO SCH (08:35)
[2017-07-28] MEDS: LORATADINE 10 MG TABLET HOMEMEDPO SCH (08:35)
[2017-07-28] MEDS: POTASSIUM CHLORIDE 20 MEQ TAB.ER.PRT PO SCH (08:35)
[2017-07-28] MEDS: ASPIRIN 81 MG TABLET EC PO SCH (08:44)
[2017-07-28] MEDS: ALLOPURINOL 100 MG TABLET PO SCH (08:45)
[2017-07-28] MEDS: INSULIN GLARGINE 100 UNITS/ML, PEN SQ-INSULIN SCH ×2 (08:45→21:31)
[2017-07-28] MEDS: FLUTICASONE NASAL SPRAY 16GM NAS SCH ×2 (08:45→21:29)
[2017-07-28] MEDS: FUROSEMIDE 40 MG/4 ML IV SCH ×2 (10:30→17:18)
[2017-07-28] MEDS: FERROUS SULFATE 325 MG TABLET PO SCH ×2 (12:29→17:18)
[2017-07-28 14:30] VITALS: BP 113/56
[2017-07-28 18:46] VITALS: BP 106/62
[2017-07-29 01:24] VITALS: BP 101/59
[2017-07-29 05:17] LABS: BASOPHILS # (AUTO) 0.08 x10^3/uL (0-0.1); BASOPHILS % (AUTO) 1 % (0-1); EOSINOPHILS # (AUTO) 0.36 x10^3/uL (0-0.4); EOSINOPHILS % (AUTO) 6 % (1-7); LYMPHOCYTES # (AUTO) 0.61 x10^3/uL (1-3.4); LYMPHOCYTES % (AUTO) 9 % (22-44); MD NO; MEAN CORPUSCULAR HEMOGLOBIN 28.7 pg (27.0-34.8); MEAN CORPUSCULAR HGB CONC 31.9 g/dL (32.4-35.8); MEAN PLATELET VOLUME 9.7 fL (7.4-10.4); MONOCYTES # (AUTO) 0.34 x10^3/uL (0.2-0.8); MONOCYTES % (AUTO) 5 % (2-9); NEUTROPHILS # (AUTO) 5.17 x10^3/uL (1.8-6.8); NEUTROPHILS % (AUTO) 79 % (42-75); PLATELET COUNT 168 x10^3/uL (130-400); RED BLOOD COUNT 3.49 x10^6/uL (3.82-5.3); RED CELL DISTRIBUTION WIDTH 19.1 % (9.6-15.2)
[2017-07-29 05:27] LABS: CHLORIDE 98 mmol/L (98-107)
[2017-07-29 05:39] LABS: ALANINE AMINOTRANSFERASE 14 U/L (12-78); ALBUMIN 3.1 g/dL (3.4-5.0); ALKALINE PHOSPHATASE 116 U/L (45-117); ANION GAP 8 mmol/L (5-15); BILIRUBIN,TOTAL 0.9 mg/dL (0.2-1.0); CALCIUM 8.5 mg/dL (8.5-10.1); CREATININE 2.37 mg/dL (0.55-1.02); TOTAL PROTEIN 6.7 g/dL (6.4-8.2)
[2017-07-29] MEDS: TREPROSTINIL DIOLAMINE 1 MG PO SCH ×3 (06:00→21:11)
[2017-07-29] MEDS: LEVOTHYROXINE 100 MCG TABLET PO SCH (06:06)
[2017-07-29] MEDS: HEPARIN 5,000 UNITS/ML, 1ML SQ SCH ×3 (06:06→21:11)
[2017-07-29] MEDS: INSULIN LISPRO 100 UNITS/ML, PEN SQ-INSULIN SCH ×4 (07:07→21:12)
[2017-07-29 08:30] VITALS: BP 108/68
[2017-07-29] MEDS ORDERED: FUROSEMIDE 40 MG/4 ML IV SCH (08:30)
[2017-07-29] MEDS: ASPIRIN 81 MG TABLET EC PO SCH (08:53)
[2017-07-29] MEDS: POTASSIUM CHLORIDE 20 MEQ TAB.ER.PRT PO SCH (08:53)
[2017-07-29] MEDS: CHOLECALCIFEROL 1,000 UNIT TABLET PO SCH (08:53)
[2017-07-29] MEDS: ALLOPURINOL 100 MG TABLET PO SCH (08:53)
[2017-07-29] MEDS: INSULIN GLARGINE 100 UNITS/ML, PEN SQ-INSULIN SCH ×2 (08:54→21:11)
[2017-07-29] MEDS: LORATADINE 10 MG TABLET HOMEMEDPO SCH (08:54)
[2017-07-29] MEDS: FLUTICASONE NASAL SPRAY 16GM NAS SCH ×2 (09:02→21:15)
[2017-07-29] MEDS: FERROUS SULFATE 325 MG TABLET PO SCH ×2 (12:13→16:51)
[2017-07-29 13:26] VITALS: BP 110/60
[2017-07-29] MEDS ORDERED: FUROSEMIDE 40 MG/4 ML IV ONE (17:00)
[2017-07-29 19:18] VITALS: BP 112/63
[2017-07-30 00:17] VITALS: BP 108/64
[2017-07-30] MEDS: TREPROSTINIL DIOLAMINE 1 MG PO SCH ×3 (05:02→21:10)
[2017-07-30] MEDS: LEVOTHYROXINE 100 MCG TABLET PO SCH (05:02)
[2017-07-30] MEDS: HEPARIN 5,000 UNITS/ML, 1ML SQ SCH ×3 (05:02→21:09)
[2017-07-30 05:38] LABS: CHLORIDE 100 mmol/L (98-107)
[2017-07-30 05:49] LABS: ALANINE AMINOTRANSFERASE 14 U/L (12-78); ALBUMIN 3.2 g/dL (3.4-5.0); ALKALINE PHOSPHATASE 120 U/L (45-117); ANION GAP 4 mmol/L (5-15); BILIRUBIN,TOTAL 0.9 mg/dL (0.2-1.0); CALCIUM 9.3 mg/dL (8.5-10.1); CREATININE 2.39 mg/dL (0.55-1.02); TOTAL PROTEIN 7.2 g/dL (6.4-8.2)
[2017-07-30] MEDS: INSULIN LISPRO 100 UNITS/ML, PEN SQ-INSULIN SCH ×4 (07:07→21:09)
[2017-07-30] MEDS ORDERED: AcetaZOLAMIDE INJ 500 MG IVPush ONE (07:30)
[2017-07-30 09:08] VITALS: BP 101/59
[2017-07-30] MEDS: POTASSIUM CHLORIDE 20 MEQ TAB.ER.PRT PO SCH (09:15)
[2017-07-30] MEDS: FLUTICASONE NASAL SPRAY 16GM NAS SCH ×2 (09:16→21:08)
[2017-07-30] MEDS: ALLOPURINOL 100 MG TABLET PO SCH (09:16)
[2017-07-30] MEDS: LORATADINE 10 MG TABLET HOMEMEDPO SCH (09:16)
[2017-07-30] MEDS: ASPIRIN 81 MG TABLET EC PO SCH (09:16)
[2017-07-30] MEDS: CHOLECALCIFEROL 1,000 UNIT TABLET PO SCH (09:17)
[2017-07-30] MEDS: INSULIN GLARGINE 100 UNITS/ML, PEN SQ-INSULIN SCH ×2 (09:28→21:09)
[2017-07-30] MEDS: FERROUS SULFATE 325 MG TABLET PO SCH ×2 (12:03→17:00)
[2017-07-30 14:30] VITALS: BP 113/56
[2017-07-30] MEDS ORDERED: FUROSEMIDE 20 MG/2 ML IV ONE (15:00)
[2017-07-30 20:37] VITALS: BP 115/71
[2017-07-31 02:47] VITALS: BP 106/54
[2017-07-31] MEDS: HEPARIN 5,000 UNITS/ML, 1ML SQ SCH ×3 (05:28→21:26)
[2017-07-31] MEDS: LEVOTHYROXINE 100 MCG TABLET PO SCH (05:28)
[2017-07-31] MEDS: TREPROSTINIL DIOLAMINE 1 MG PO SCH ×3 (05:41→21:26)
[2017-07-31 05:58] LABS: CHLORIDE 100 mmol/L (98-107)
[2017-07-31 06:23] LABS: ALANINE AMINOTRANSFERASE 14 U/L (12-78); ALBUMIN 3.1 g/dL (3.4-5.0); ALKALINE PHOSPHATASE 112 U/L (45-117); ANION GAP 6 mmol/L (5-15); BILIRUBIN,TOTAL 0.7 mg/dL (0.2-1.0); CALCIUM 9.1 mg/dL (8.5-10.1); CREATININE 2.23 mg/dL (0.55-1.02); TOTAL PROTEIN 6.9 g/dL (6.4-8.2)
[2017-07-31] MEDS: INSULIN LISPRO 100 UNITS/ML, PEN SQ-INSULIN SCH ×4 (07:00→21:00)
[2017-07-31] MEDS: CHOLECALCIFEROL 1,000 UNIT TABLET PO SCH (08:16)
[2017-07-31] MEDS: POTASSIUM CHLORIDE 20 MEQ TAB.ER.PRT PO SCH (08:17)
[2017-07-31] MEDS: LORATADINE 10 MG TABLET HOMEMEDPO SCH (08:17)
[2017-07-31] MEDS: ALLOPURINOL 100 MG TABLET PO SCH (08:17)
[2017-07-31] MEDS: ASPIRIN 81 MG TABLET EC PO SCH (08:17)
[2017-07-31] MEDS: FERROUS SULFATE 325 MG TABLET PO SCH ×2 (08:17→16:41)
[2017-07-31] MEDS: FUROSEMIDE 40 MG/4 ML IV SCH ×2 (08:18→16:41)
[2017-07-31] MEDS: FLUTICASONE NASAL SPRAY 16GM NAS SCH ×2 (08:19→21:00)
[2017-07-31] MEDS: INSULIN GLARGINE 100 UNITS/ML, PEN SQ-INSULIN SCH ×2 (08:19→21:25)
[2017-07-31 08:36] VITALS: BP 96/58
[2017-07-31 13:47] VITALS: BP 104/58
[2017-07-31 20:00] VITALS: BP 118/65
[2017-08-01 01:18] VITALS: BP 96/57
[2017-08-01] MEDS: FLUTICASONE NASAL SPRAY 16GM NAS SCH ×3 (02:31→21:54)
[2017-08-01 05:44] LABS: CHLORIDE 97 mmol/L (98-107)
[2017-08-01 05:57] LABS: ALANINE AMINOTRANSFERASE 13 U/L (12-78); ALBUMIN 3.1 g/dL (3.4-5.0); ALKALINE PHOSPHATASE 114 U/L (45-117); ANION GAP 6 mmol/L (5-15); BILIRUBIN,TOTAL 0.7 mg/dL (0.2-1.0); CALCIUM 9.1 mg/dL (8.5-10.1); CREATININE 2.06 mg/dL (0.55-1.02); TOTAL PROTEIN 6.8 g/dL (6.4-8.2)
[2017-08-01] MEDS: TREPROSTINIL DIOLAMINE 1 MG PO SCH ×3 (06:00→22:04)
[2017-08-01] MEDS: LEVOTHYROXINE 100 MCG TABLET PO SCH (06:24)
[2017-08-01] MEDS: HEPARIN 5,000 UNITS/ML, 1ML SQ SCH ×3 (06:24→21:55)
[2017-08-01 07:57] VITALS: BP 92/49
[2017-08-01] MEDS: POTASSIUM CHLORIDE 20 MEQ TAB.ER.PRT PO SCH (09:23)
[2017-08-01] MEDS: INSULIN LISPRO 100 UNITS/ML, PEN SQ-INSULIN SCH ×4 (09:23→21:54)
[2017-08-01] MEDS: CHOLECALCIFEROL 1,000 UNIT TABLET PO SCH (09:24)
[2017-08-01] MEDS: LORATADINE 10 MG TABLET HOMEMEDPO SCH (09:24)
[2017-08-01] MEDS: ASPIRIN 81 MG TABLET EC PO SCH (09:24)
[2017-08-01] MEDS: INSULIN GLARGINE 100 UNITS/ML, PEN SQ-INSULIN SCH ×2 (09:25→21:54)
[2017-08-01] MEDS: ALLOPURINOL 100 MG TABLET PO SCH (09:26)
[2017-08-01] MEDS: FERROUS SULFATE 325 MG TABLET PO SCH ×2 (13:11→17:30)
[2017-08-01 13:41] VITALS: BP 99/61
[2017-08-01] MEDS: FUROSEMIDE 40 MG TABLET PO SCH (17:30)
[2017-08-01 21:05] VITALS: BP 112/65
[2017-08-01 23:58] VITALS: BP 101/51
[2017-08-02 00:50] VITALS: BP 126/82
[2017-08-02 05:35] LABS: ANION GAP 6 mmol/L (5-15); CALCIUM 8.5 mg/dL (8.5-10.1); CHLORIDE 101 mmol/L (98-107)
[2017-08-02 05:39] LABS: ALANINE AMINOTRANSFERASE 13 U/L (12-78); ALKALINE PHOSPHATASE 114 U/L (45-117); BILIRUBIN,TOTAL 0.8 mg/dL (0.2-1.0); CREATININE 1.94 mg/dL (0.55-1.02); TOTAL PROTEIN 6.8 g/dL (6.4-8.2)
[2017-08-02] MEDS: LEVOTHYROXINE 100 MCG TABLET PO SCH (06:11)
[2017-08-02] MEDS: HEPARIN 5,000 UNITS/ML, 1ML SQ SCH ×3 (06:11→22:34)
[2017-08-02] MEDS: TREPROSTINIL DIOLAMINE 1 MG PO SCH ×3 (06:11→22:33)
[2017-08-02] MEDS: INSULIN LISPRO 100 UNITS/ML, PEN SQ-INSULIN SCH ×4 (07:00→22:32)
[2017-08-02 08:08] VITALS: BP 107/61
[2017-08-02 08:30] VITALS: BP 114/66
[2017-08-02] MEDS: LORATADINE 10 MG TABLET HOMEMEDPO SCH (08:58)
[2017-08-02] MEDS: CHOLECALCIFEROL 1,000 UNIT TABLET PO SCH (08:58)
[2017-08-02] MEDS: POTASSIUM CHLORIDE 20 MEQ TAB.ER.PRT PO SCH (08:58)
[2017-08-02] MEDS: ASPIRIN 81 MG TABLET EC PO SCH (08:58)
[2017-08-02] MEDS: FUROSEMIDE 40 MG TABLET PO SCH (08:58)
[2017-08-02] MEDS: ALLOPURINOL 100 MG TABLET PO SCH (08:59)
[2017-08-02] MEDS: FLUTICASONE NASAL SPRAY 16GM NAS SCH ×2 (10:02→22:31)
[2017-08-02] MEDS: INSULIN GLARGINE 100 UNITS/ML, PEN SQ-INSULIN SCH ×2 (10:03→22:32)
[2017-08-02] MEDS: FERROUS SULFATE 325 MG TABLET PO SCH ×2 (12:49→17:02)
[2017-08-02 13:59] VITALS: BP 117/65
[2017-08-02] MEDS: FUROSEMIDE 80 MG TABLET PO SCH (17:02)
[2017-08-02 19:48] VITALS: BP 111/57
[2017-08-03 00:45] VITALS: BP 103/61
[2017-08-03 06:17] LABS: ALBUMIN 3.1 g/dL (3.4-5.0); ANION GAP 7 mmol/L (5-15); CALCIUM 9.1 mg/dL (8.5-10.1); CHLORIDE 100 mmol/L (98-107)
[2017-08-03] MEDS: HEPARIN 5,000 UNITS/ML, 1ML SQ SCH ×2 (06:17→14:11)
[2017-08-03] MEDS: LEVOTHYROXINE 100 MCG TABLET PO SCH (06:17)
[2017-08-03] MEDS: TREPROSTINIL DIOLAMINE 1 MG PO SCH ×2 (06:18→14:11)
[2017-08-03 06:19] LABS: ALANINE AMINOTRANSFERASE 13 U/L (12-78); ALKALINE PHOSPHATASE 111 U/L (45-117); BILIRUBIN,TOTAL 0.7 mg/dL (0.2-1.0); CREATININE 1.89 mg/dL (0.55-1.02); TOTAL PROTEIN 6.9 g/dL (6.4-8.2)
[2017-08-03] MEDS: INSULIN LISPRO 100 UNITS/ML, PEN SQ-INSULIN SCH ×3 (07:00→16:00)
[2017-08-03 07:43] VITALS: BP 104/56
[2017-08-03] MEDS: POTASSIUM CHLORIDE 20 MEQ TAB.ER.PRT PO SCH (08:06)
[2017-08-03] MEDS: FLUTICASONE NASAL SPRAY 16GM NAS SCH (08:07)
[2017-08-03] MEDS: LORATADINE 10 MG TABLET HOMEMEDPO SCH (08:07)
[2017-08-03] MEDS: CHOLECALCIFEROL 1,000 UNIT TABLET PO SCH (08:07)
[2017-08-03] MEDS: FUROSEMIDE 80 MG TABLET PO SCH ×2 (08:07→17:25)
[2017-08-03] MEDS: ASPIRIN 81 MG TABLET EC PO SCH (08:07)
[2017-08-03] MEDS: ALLOPURINOL 100 MG TABLET PO SCH (08:07)
[2017-08-03] MEDS: INSULIN GLARGINE 100 UNITS/ML, PEN SQ-INSULIN SCH (09:12)
[2017-08-03] MEDS: FERROUS SULFATE 325 MG TABLET PO SCH ×2 (12:16→17:25)
[2017-08-03] MEDS ORDERED: FLUT16SP NAS (14:39)
[2017-08-03] MEDS ORDERED: POTA20TA6 PO (14:39)
[2017-08-03] MEDS ORDERED: FURO80TA3 PO (14:39)
[2017-08-03] MEDS ORDERED: FERR-51 PO (14:39)
[2017-08-03] MEDS ORDERED: LORA10TA75 HOMEMEDPO (14:39)
[2017-08-03 16:03] VITALS: BP 116/60
== END 2017-08-03 18:15 | DRG 291 ==
LOC: ED 13:48 → EDIP 13:49 → ED 14:19 → SUATTDRO 14:29 → 5SO 21:50 → 4NOR 08-02 08:31
PROVIDERS: ADMIT Hospitalist; ATTEND Family Medicine
DX: I13.0 Hypertensive heart and chronic kidney disease with heart failure and stage 1 through stage 4 chronic kidney disease, or unspecified chronic kidney disease (principal); J96.21 Acute and chronic respiratory failure with hypoxia; E87.4 Mixed disorder of acid-base balance; N18.4 Chronic kidney disease, stage 4 (severe); N17.9 Acute kidney failure, unspecified; E66.01 Morbid (severe) obesity due to excess calories; I07.1 Rheumatic tricuspid insufficiency; E11.22 Type 2 diabetes mellitus with diabetic chronic kidney disease; I27.20 Pulmonary hypertension, unspecified; I50.33 Acute on chronic diastolic (congestive) heart failure; I24.8 Other forms of acute ischemic heart disease; N39.0 Urinary tract infection, site not specified; I27.81 Cor pulmonale (chronic); I70.0 Atherosclerosis of aorta; D50.9 Iron deficiency anemia, unspecified; D63.1 Anemia in chronic kidney disease; E03.9 Hypothyroidism, unspecified; E78.5 Hyperlipidemia, unspecified; Z90.49 Acquired absence of other specified parts of digestive tract; Z79.899 Other long term (current) drug therapy; Z79.82 Long term (current) use of aspirin; Z88.1 Allergy status to other antibiotic agents; Z68.39 Body mass index [BMI] 39.0-39.9, adult; Z87.891 Personal history of nicotine dependence; Z99.81 Dependence on supplemental oxygen; Z79.4 Long term (current) use of insulin
CPT/HCPCS: 36415; 36600; 71045; 78582; 80048; 80053; 80061; 80076; 81001; 82040; 82306; 82728; 82803; 82962; 83036; 83540; 83550; 83735; 83880; 83970; 84100; 84439; 84443; 84484; 84550; 85025; 87040; 87086; 93005; 93306; 93922; 93990; 94640; 96374; 96375; J1644; J1650; J1940; J7620; A9540; A9558; J1120; J1815; J2930

== ENCOUNTER 2018-02-10 17:46 | Inpatient (IN) | payer MEDICARE ==
[~2018-02-10] VITALS: Ht 162.6 cm; Wt 101.7 kg
[~2018-02-10 17:46] MED LIST changes: +FERR-51 PO; +FLUT16SP NAS; +FURO80TA3 PO; +INSU100I32 SC; +LORA10TA75 HOMEMEDPO; +MACI10TA PO; +POTA20TA6 PO; +TREP1TAB PO
[2018-02-10 18:30] LABS: BASOPHILS # (AUTO) 0.05 x10^3/uL (0-0.1); BASOPHILS % (AUTO) 1 % (0-1); EOSINOPHILS # (AUTO) 0.13 x10^3/uL (0-0.4); EOSINOPHILS % (AUTO) 2 % (1-7); LYMPHOCYTES # (AUTO) 0.73 x10^3/uL (1-3.4); LYMPHOCYTES % (AUTO) 11 % (22-44); MD NO; MEAN CORPUSCULAR HEMOGLOBIN 30.5 pg (27.0-34.8); MEAN CORPUSCULAR HGB CONC 32.6 g/dL (32.4-35.8); MEAN CORPUSCULAR VOLUME 93.7 fL (80-100); MEAN PLATELET VOLUME 8.3 fL (7.4-10.4); MONOCYTES # (AUTO) 0.24 x10^3/uL (0.2-0.8); MONOCYTES % (AUTO) 4 % (2-9); NEUTROPHILS # (AUTO) 5.36 x10^3/uL (1.8-6.8); NEUTROPHILS % (AUTO) 82 % (42-75); PLATELET COUNT 172 x10^3/uL (130-400); RED BLOOD COUNT 3.68 x10^6/uL (3.82-5.3); RED CELL DISTRIBUTION WIDTH 17.3 % (9.6-15.2)
[2018-02-10 18:43] LABS: ALBUMIN 3.7 g/dL (3.4-5.0); ANION GAP 7 mmol/L (5-15); CALCIUM 9.1 mg/dL (8.5-10.1); CHLORIDE 90 mmol/L (98-107); CREATININE 1.92 mg/dL (0.55-1.02)
[2018-02-10 18:47] LABS: TROPONIN I 0.115 ng/mL (0.000-0.045)
[2018-02-10] MEDS ORDERED: ONDANSETRON 2MG/ML, 2ML IVPush PRN (19:30)
[2018-02-10] MEDS ORDERED: MORPHINE SULFATE 4 MG/ML, 1ML IVPush PRN (19:30)
[2018-02-10] MEDS ORDERED: METO5TAB5 PO (19:32)
[2018-02-10] MEDS ORDERED: ACET250T2 PO (19:32)
[2018-02-10] MEDS ORDERED: ALLO100T64 PO (19:32)
[2018-02-10] MEDS ORDERED: D3 PO (19:32)
[2018-02-10] MEDS ORDERED: ONDANSETRON ODT 4 MG PO PRN (20:00)
[2018-02-10] MEDS ORDERED: POLYETHYLENE GLYCOL 17 GM PACKET PO PRN (20:00)
[2018-02-10] MEDS ORDERED: BISACODYL 10 MG SUPP PR PRN (20:00)
[2018-02-10] MEDS ORDERED: TEMPLATE NON-FORMULARY MED. ([Oxygen] 3 L) INH SCH (20:00)
[2018-02-10] MEDS ORDERED: ACETAMINOPHEN 325 MG TABLET PO PRN (20:00)
[2018-02-10 20:45] LABS: HEMOGLOBIN A1C 7.4 % (4.2-6.3)
[2018-02-10] MEDS: FUROSEMIDE 40 MG/4 ML IV SCH (20:46)
[2018-02-10] MEDS: HEPARIN 5,000 UNITS/ML, 1ML SQ SCH (20:46)
[2018-02-10] MEDS: FERROUS SULFATE 325 MG TABLET PO SCH (20:46)
[2018-02-10] MEDS: SODIUM CHLORIDE FLUSH 10ML SYR IVF SCH (20:47)
[2018-02-10] MEDS: FLUTICASONE NASAL SPRAY 16GM NAS SCH ×3 (21:00→23:50)
[2018-02-10] MEDS ORDERED: INSULIN LISPRO 100 UNITS/ML, PEN SQ-INSULIN SCH (21:00)
[2018-02-10] MEDS: INSULIN LISPRO 100 UNITS/ML, PEN SQ-INSULIN SCH (23:47)
[2018-02-11 00:27] VITALS: BP 116/64
[2018-02-11 00:50] LABS: TROPONIN I 0.115 ng/mL (0.000-0.045)
[2018-02-11] MEDS: LEVOTHYROXINE 100 MCG TABLET PO SCH (06:00)
[2018-02-11] MEDS: HEPARIN 5,000 UNITS/ML, 1ML SQ SCH ×3 (06:03→20:10)
[2018-02-11 06:22] LABS: ALANINE AMINOTRANSFERASE 13 U/L (12-78); ALBUMIN 3.2 g/dL (3.4-5.0); ANION GAP 3 mmol/L (5-15); CALCIUM 8.6 mg/dL (8.5-10.1); CHLORIDE 94 mmol/L (98-107); CREATININE 1.96 mg/dL (0.55-1.02)
[2018-02-11 06:23] LABS: BASOPHILS # (AUTO) 0.07 x10^3/uL (0-0.1); BASOPHILS % (AUTO) 1 % (0-1); EOSINOPHILS # (AUTO) 0.18 x10^3/uL (0-0.4); EOSINOPHILS % (AUTO) 3 % (1-7); LYMPHOCYTES # (AUTO) 0.79 x10^3/uL (1-3.4); LYMPHOCYTES % (AUTO) 14 % (22-44); MD NO; MEAN CORPUSCULAR HEMOGLOBIN 30.4 pg (27.0-34.8); MEAN CORPUSCULAR HGB CONC 32.6 g/dL (32.4-35.8); MEAN CORPUSCULAR VOLUME 93.3 fL (80-100); MEAN PLATELET VOLUME 8.3 fL (7.4-10.4); MONOCYTES # (AUTO) 0.28 x10^3/uL (0.2-0.8); MONOCYTES % (AUTO) 5 % (2-9); NEUTROPHILS # (AUTO) 4.39 x10^3/uL (1.8-6.8); NEUTROPHILS % (AUTO) 77 % (42-75); PLATELET COUNT 156 x10^3/uL (130-400); RED BLOOD COUNT 3.43 x10^6/uL (3.82-5.3); RED CELL DISTRIBUTION WIDTH 17.2 % (9.6-15.2)
[2018-02-11 06:26] LABS: ALKALINE PHOSPHATASE 95 U/L (45-117); BILIRUBIN,TOTAL 0.8 mg/dL (0.2-1.0); TOTAL PROTEIN 7.1 g/dL (6.4-8.2); TROPONIN I 0.123 ng/mL (0.000-0.045)
[2018-02-11] MEDS: INSULIN LISPRO 100 UNITS/ML, PEN SQ-INSULIN SCH ×4 (07:00→20:14)
[2018-02-11 07:07] VITALS: BP 102/55
[2018-02-11] MEDS: LORATADINE 10 MG TABLET PO SCH (09:00)
[2018-02-11] MEDS: SENNA/DOCUSATE TABLET PO SCH (09:00)
[2018-02-11] MEDS ORDERED: FLUTICASONE PROPIONATE 50 MCG NAS SCH (09:00)
[2018-02-11] MEDS ORDERED: ALLOPURINOL 100 MG PO SCH (09:00)
[2018-02-11] MEDS ORDERED: PHARMACY MAY ADJ FOR RENAL FX MC PRN (09:00)
[2018-02-11] MEDS: FLUTICASONE NASAL SPRAY 16GM NAS SCH ×2 (09:00→20:11)
[2018-02-11] MEDS: FUROSEMIDE 40 MG/4 ML IV SCH ×2 (09:28→16:36)
[2018-02-11] MEDS: ASPIRIN 81 MG TABLET CHEW PO SCH (09:28)
[2018-02-11] MEDS: POTASSIUM CHLORIDE 20 MEQ TAB.ER.PRT PO SCH (09:29)
[2018-02-11] MEDS: CHOLECALCIFEROL 1,000 UNIT TABLET PO SCH (09:29)
[2018-02-11] MEDS: ALLOPURINOL 100 MG TABLET PO SCH (09:29)
[2018-02-11] MEDS: METOLAZONE 5 MG TABLET PO SCH (09:31)
[2018-02-11] MEDS: SODIUM CHLORIDE FLUSH 10ML SYR IVF SCH ×2 (09:34→20:12)
[2018-02-11 12:29] VITALS: BP 91/60
[2018-02-11] MEDS: FERROUS SULFATE 325 MG TABLET PO SCH ×2 (12:56→16:40)
[2018-02-11 21:07] VITALS: BP 117/63
[2018-02-12 01:30] VITALS: BP 102/55
[2018-02-12] MEDS: HEPARIN 5,000 UNITS/ML, 1ML SQ SCH ×2 (05:10→13:00)
[2018-02-12] MEDS: LEVOTHYROXINE 100 MCG TABLET PO SCH (05:10)
[2018-02-12 05:55] LABS: BASOPHILS # (AUTO) 0.06 x10^3/uL (0-0.1); BASOPHILS % (AUTO) 1 % (0-1); EOSINOPHILS # (AUTO) 0.23 x10^3/uL (0-0.4); EOSINOPHILS % (AUTO) 4 % (1-7); LYMPHOCYTES # (AUTO) 0.88 x10^3/uL (1-3.4); LYMPHOCYTES % (AUTO) 15 % (22-44); MD NO; MEAN CORPUSCULAR HEMOGLOBIN 30.1 pg (27.0-34.8); MEAN CORPUSCULAR HGB CONC 32.5 g/dL (32.4-35.8); MEAN CORPUSCULAR VOLUME 92.7 fL (80-100); MEAN PLATELET VOLUME 9.1 fL (7.4-10.4); MONOCYTES # (AUTO) 0.33 x10^3/uL (0.2-0.8); MONOCYTES % (AUTO) 6 % (2-9); NEUTROPHILS % (AUTO) 74 % (42-75); PLATELET COUNT 164 x10^3/uL (130-400); RED BLOOD COUNT 3.48 x10^6/uL (3.82-5.3); RED CELL DISTRIBUTION WIDTH 17.6 % (9.6-15.2)
[2018-02-12 06:06] LABS: CHLORIDE 91 mmol/L (98-107)
[2018-02-12 06:19] LABS: ALANINE AMINOTRANSFERASE 13 U/L (12-78); ALBUMIN 3.4 g/dL (3.4-5.0); ALKALINE PHOSPHATASE 96 U/L (45-117); ANION GAP 7 mmol/L (5-15); BILIRUBIN,TOTAL 0.9 mg/dL (0.2-1.0); CALCIUM 9.2 mg/dL (8.5-10.1); CREATININE 1.88 mg/dL (0.55-1.02); TOTAL PROTEIN 7.4 g/dL (6.4-8.2)
[2018-02-12] MEDS: INSULIN LISPRO 100 UNITS/ML, PEN SQ-INSULIN SCH ×2 (07:00→11:00)
[2018-02-12 07:10] VITALS: BP 133/61
[2018-02-12] MEDS: POTASSIUM CHLORIDE 20 MEQ TAB.ER.PRT PO SCH (08:57)
[2018-02-12] MEDS: FUROSEMIDE 40 MG/4 ML IV SCH (08:57)
[2018-02-12] MEDS: LORATADINE 10 MG TABLET PO SCH (08:59)
[2018-02-12] MEDS: FLUTICASONE NASAL SPRAY 16GM NAS SCH (08:59)
[2018-02-12] MEDS: ASPIRIN 81 MG TABLET CHEW PO SCH (08:59)
[2018-02-12] MEDS: CHOLECALCIFEROL 1,000 UNIT TABLET PO SCH (09:00)
[2018-02-12] MEDS: ALLOPURINOL 100 MG TABLET PO SCH (09:00)
[2018-02-12] MEDS: METOLAZONE 5 MG TABLET PO SCH (09:00)
[2018-02-12] MEDS: SENNA/DOCUSATE TABLET PO SCH (09:00)
[2018-02-12 12:23] VITALS: BP 113/71
[2018-02-12] MEDS: FERROUS SULFATE 325 MG TABLET PO SCH (13:10)
[2018-02-12] MEDS: SODIUM CHLORIDE FLUSH 10ML SYR IVF SCH (13:11)
[2018-02-12] MEDS ORDERED: BUME1TAB21 PO ×2 (13:20)
[2018-02-12] MEDS ORDERED: BUMETANIDE 1 MG TABLET PO SCH (21:00)
[2018-02-13] MEDS ORDERED: BUMETANIDE 1 MG TABLET PO SCH (09:00)
== END 2018-02-12 16:09 | disposition home or self-care (01) | DRG 175 ==
LOC: ED 19:23 → EDIP 20:03 → 5SO 20:15
PROVIDERS: ADMIT Hospitalist; ATTEND Hospitalist
DX: I26.09 Other pulmonary embolism with acute cor pulmonale (principal); I50.41 Acute combined systolic (congestive) and diastolic (congestive) heart failure; J96.21 Acute and chronic respiratory failure with hypoxia; I27.0 Primary pulmonary hypertension; N18.4 Chronic kidney disease, stage 4 (severe); I24.8 Other forms of acute ischemic heart disease; Z68.38 Body mass index [BMI] 38.0-38.9, adult; E66.01 Morbid (severe) obesity due to excess calories; M10.9 Gout, unspecified; E11.22 Type 2 diabetes mellitus with diabetic chronic kidney disease; D64.9 Anemia, unspecified; E78.5 Hyperlipidemia, unspecified; E89.0 Postprocedural hypothyroidism; F17.210 Nicotine dependence, cigarettes, uncomplicated; I48.0 Paroxysmal atrial fibrillation; Z79.4 Long term (current) use of insulin; Z99.81 Dependence on supplemental oxygen; Z90.49 Acquired absence of other specified parts of digestive tract; Z79.899 Other long term (current) drug therapy; Z79.82 Long term (current) use of aspirin; Z88.1 Allergy status to other antibiotic agents; Z82.49 Family history of ischemic heart disease and other diseases of the circulatory system
CPT/HCPCS: 36415; 36600; 71045; 80048; 80053; 82040; 82803; 82962; 83036; 83735; 83880; 84145; 84484; 85025; 93005; 93306; 99285; G0378; J1644; J1940; J1815

== ENCOUNTER 2018-04-21 13:48 | Inpatient (IN) | payer MEDICARE, OTHER ==
[~2018-04-21] VITALS: Ht 162.6 cm; Wt 90.3 kg
[~2018-04-21 13:48] MED LIST changes: +ACET250T2 PO; +ALLO100T64 PO; +BUME1TAB21 PO; +D3 PO
--- NOTE | 2018-04-21 14:05 | NUR ---
PT BIB [facility] FROM [facility] IN [facility] SPINGS FOR WEAKNESS FOR ONE WEAK ACCOMPANIED BY SOB. PT DENIES CP. PER [facility], ON THEIR ARRIVAL PT WAS SATING 82% ON RA WITH CYANOTIC FINGERS. PT PLACED ON 6 LITERS NC AND PT HOLING STEADY IN THE 90'S. PT ON MONITOR, EKG DONE.
[2018-04-21] MEDS ORDERED: INSU100I32 SQ (14:12)
[2018-04-21] MEDS ORDERED: BUME1TAB21 PO (14:12)
[2018-04-21] MEDS ORDERED: TREP0.12 PO (14:12)
[2018-04-21] MEDS ORDERED: APIX5TAB PO (14:12)
[2018-04-21] MEDS ORDERED: SODIUM CHLORIDE FLUSH 10ML SYR IVF ONE (14:30)
[2018-04-21] MEDS ORDERED: FUROSEMIDE 40 MG/4 ML IVPush ONE (14:30)
[2018-04-21 14:36] LABS: MEAN CORPUSCULAR HEMOGLOBIN 31.1 pg (27.0-34.8); MEAN CORPUSCULAR HGB CONC 32.5 g/dL (32.4-35.8); MEAN CORPUSCULAR VOLUME 95.7 fL (80-100); MEAN PLATELET VOLUME 8.4 fL (7.4-10.4); PLATELET COUNT 210 x10^3/uL (130-400); RED BLOOD COUNT 4.33 x10^6/uL (3.82-5.3); RED CELL DISTRIBUTION WIDTH 18.2 % (9.6-15.2)
[2018-04-21 14:44] LABS: ALANINE AMINOTRANSFERASE 8 U/L (12-78); ALBUMIN 3.4 g/dL (3.4-5.0); ANION GAP 10 mmol/L (5-15); CALCIUM 8.5 mg/dL (8.5-10.1); CHLORIDE 96 mmol/L (98-107); CREATININE 3.13 mg/dL (0.55-1.02)
[2018-04-21 14:48] LABS: ALKALINE PHOSPHATASE 91 U/L (45-117); TOTAL PROTEIN 7.2 g/dL (6.4-8.2); TROPONIN I 0.716 ng/mL (0.000-0.045)
[2018-04-21] MEDS ORDERED: FUROSEMIDE 40 MG/4 ML ONE (14:48)
[2018-04-21 15:05] LABS: BILIRUBIN,TOTAL 1.4 mg/dL (0.2-1.0)
[2018-04-21 15:09] LABS: BASOPHILS # (AUTO) 0.06 x10^3/uL (0-0.1); BASOPHILS % (AUTO) 1 % (0-1); EOSINOPHILS # (AUTO) 0.08 x10^3/uL (0-0.4); EOSINOPHILS % (AUTO) 1 % (1-7); LYMPHOCYTES # (AUTO) 0.55 x10^3/uL (1-3.4); LYMPHOCYTES % (AUTO) 10 % (22-44); MD NO; MONOCYTES # (AUTO) 0.29 x10^3/uL (0.2-0.8); MONOCYTES % (AUTO) 5 % (2-9); NEUTROPHILS # (AUTO) 4.73 x10^3/uL (1.8-6.8); NEUTROPHILS % (AUTO) 83 % (42-75)
[2018-04-21 15:13] LABS: INTERNATIONAL NORMALIZED RATIO 1.56 (0.93-1.1); PROTHROMBIN TIME 16.3 Seconds (9.6-11.5)
[2018-04-21] MEDS ORDERED: ASPIRIN 81 MG TABLET CHEW ONE (15:20)
[2018-04-21] MEDS ORDERED: ASPIRIN 81 MG TABLET CHEW PO ONE (15:30)
[2018-04-21 15:58] LABS: T4 (THYROXINE) 1.8 mcg/dL (4.8-13.9)
[2018-04-21] MEDS ORDERED: HEPARIN 5,000 UNITS/ML, 1ML SQ SCH (16:00)
[2018-04-21] MEDS ORDERED: POLYETHYLENE GLYCOL 17 GM PACKET PO PRN (16:00)
[2018-04-21] MEDS ORDERED: BUMETANIDE 1 MG TABLET PO SCH (16:00)
[2018-04-21] MEDS ORDERED: BISACODYL 10 MG SUPP PR PRN (16:00)
[2018-04-21] MEDS: INSULIN LISPRO 100 UNITS/ML, PEN SQ-INSULIN SCH ×2 (16:00→20:08)
[2018-04-21] MEDS ORDERED: hydrALAzine 20 MG/ML, 1ML IVPush PRN (16:00)
[2018-04-21] MEDS ORDERED: ACETAMINOPHEN 325 MG TABLET PO PRN (16:00)
[2018-04-21] MEDS: TREPROSTINIL DIOLAMINE PO SCH ×2 (16:00→20:04)
[2018-04-21 16:45] VITALS: BP 117/68
[2018-04-21] MEDS: FERROUS SULFATE 325 MG TABLET PO SCH (17:27)
[2018-04-21] MEDS ORDERED: LASIX MC SCH (18:00)
[2018-04-21] MEDS ORDERED: FUROSEMIDE 100 MG/10 ML IV ONE (19:00)
[2018-04-21] MEDS: APIXABAN 5 MG TABLET PO SCH (20:02)
[2018-04-21] MEDS: SODIUM CHLORIDE FLUSH 10ML SYR IVF SCH (20:02)
[2018-04-21] MEDS: INSULIN DEGLUDEC 20 UNIT SQ SCH (20:04)
[2018-04-21 20:39] LABS: TROPONIN I 0.704 ng/mL (0.000-0.045)
[2018-04-21 21:32] VITALS: BP 115/61
[2018-04-22 02:13] LABS: BASOPHILS # (AUTO) 0.03 x10^3/uL (0-0.1); BASOPHILS % (AUTO) 1 % (0-1); EOSINOPHILS # (AUTO) 0.15 x10^3/uL (0-0.4); EOSINOPHILS % (AUTO) 3 % (1-7); LYMPHOCYTES # (AUTO) 0.85 x10^3/uL (1-3.4); LYMPHOCYTES % (AUTO) 14 % (22-44); MD NO; MEAN CORPUSCULAR HEMOGLOBIN 30.9 pg (27.0-34.8); MEAN CORPUSCULAR HGB CONC 32.4 g/dL (32.4-35.8); MEAN CORPUSCULAR VOLUME 95.4 fL (80-100); MEAN PLATELET VOLUME 8.3 fL (7.4-10.4); MONOCYTES # (AUTO) 0.36 x10^3/uL (0.2-0.8); MONOCYTES % (AUTO) 6 % (2-9); NEUTROPHILS # (AUTO) 4.71 x10^3/uL (1.8-6.8); NEUTROPHILS % (AUTO) 77 % (42-75); PLATELET COUNT 209 x10^3/uL (130-400); RED BLOOD COUNT 3.93 x10^6/uL (3.82-5.3); RED CELL DISTRIBUTION WIDTH 18.6 % (9.6-15.2)
[2018-04-22 02:20] VITALS: BP 127/72
[2018-04-22 02:20] LABS: ALANINE AMINOTRANSFERASE 7 U/L (12-78); ALBUMIN 3.1 g/dL (3.4-5.0); ANION GAP 7 mmol/L (5-15); CALCIUM 8.1 mg/dL (8.5-10.1); CHLORIDE 98 mmol/L (98-107); CREATININE 3.06 mg/dL (0.55-1.02)
[2018-04-22 02:23] LABS: ALKALINE PHOSPHATASE 82 U/L (45-117); TOTAL PROTEIN 6.4 g/dL (6.4-8.2)
[2018-04-22 02:47] LABS: TROPONIN I 0.712 ng/mL (0.000-0.045)
[2018-04-22] MEDS: INSULIN LISPRO 100 UNITS/ML, PEN SQ-INSULIN SCH ×4 (07:00→21:00)
[2018-04-22] MEDS: FUROSEMIDE 100 MG/10 ML IV SCH ×2 (07:00→19:43)
[2018-04-22] MEDS ORDERED: FUROSEMIDE 40 MG/4 ML ONE (08:31)
[2018-04-22] MEDS: TREPROSTINIL DIOLAMINE PO SCH ×3 (08:40→20:59)
[2018-04-22] MEDS: ALLOPURINOL 100 MG TABLET PO SCH (08:40)
[2018-04-22] MEDS: CHOLECALCIFEROL 1,000 UNIT TABLET PO SCH (08:40)
[2018-04-22] MEDS: SODIUM CHLORIDE FLUSH 10ML SYR IVF SCH ×2 (08:41→20:58)
[2018-04-22] MEDS: APIXABAN 5 MG TABLET PO SCH ×2 (08:41→20:58)
[2018-04-22 09:00] VITALS: BP 94/58
[2018-04-22] MEDS ORDERED: LEVOTHYROXINE 100 MCG TABLET PO SCH (09:00)
[2018-04-22] MEDS: FERROUS SULFATE 325 MG TABLET PO SCH ×2 (11:31→16:24)
[2018-04-22] MEDS: ONDANSETRON 2MG/ML, 2ML IVPush PRN (13:26)
[2018-04-22 14:06] VITALS: BP 102/62
[2018-04-22 19:00] VITALS: BP 98/64
[2018-04-22] MEDS: INSULIN DEGLUDEC 20 UNIT SQ SCH (20:58)
[2018-04-23 02:57] VITALS: BP 106/66
[2018-04-23 04:49] LABS: BASOPHILS # (AUTO) 0.06 x10^3/uL (0-0.1); BASOPHILS % (AUTO) 1 % (0-1); EOSINOPHILS # (AUTO) 0.17 x10^3/uL (0-0.4); EOSINOPHILS % (AUTO) 2 % (1-7); LYMPHOCYTES # (AUTO) 0.88 x10^3/uL (1-3.4); LYMPHOCYTES % (AUTO) 13 % (22-44); MD NO; MEAN CORPUSCULAR HEMOGLOBIN 30.9 pg (27.0-34.8); MEAN CORPUSCULAR VOLUME 96.6 fL (80-100); MEAN PLATELET VOLUME 8.5 fL (7.4-10.4); MONOCYTES # (AUTO) 0.32 x10^3/uL (0.2-0.8); MONOCYTES % (AUTO) 5 % (2-9); NEUTROPHILS # (AUTO) 5.53 x10^3/uL (1.8-6.8); NEUTROPHILS % (AUTO) 80 % (42-75); PLATELET COUNT 214 x10^3/uL (130-400); RED BLOOD COUNT 4.36 x10^6/uL (3.82-5.3); RED CELL DISTRIBUTION WIDTH 18.6 % (9.6-15.2)
[2018-04-23 04:57] LABS: ALANINE AMINOTRANSFERASE 7 U/L (12-78); ALBUMIN 3.4 g/dL (3.4-5.0); ANION GAP 7 mmol/L (5-15); CALCIUM 8.2 mg/dL (8.5-10.1); CHLORIDE 97 mmol/L (98-107); CREATININE 3.24 mg/dL (0.55-1.02)
[2018-04-23 04:59] LABS: ALKALINE PHOSPHATASE 85 U/L (45-117); BILIRUBIN,TOTAL 1.1 mg/dL (0.2-1.0); TOTAL PROTEIN 7.2 g/dL (6.4-8.2)
[2018-04-23] MEDS: LEVOTHYROXINE 112 MCG TABLET PO SCH (05:42)
[2018-04-23] MEDS: INSULIN LISPRO 100 UNITS/ML, PEN SQ-INSULIN SCH ×4 (07:00→21:27)
[2018-04-23 07:42] VITALS: BP 111/68
[2018-04-23] MEDS: FUROSEMIDE 100 MG/10 ML IV SCH ×2 (08:43→20:44)
[2018-04-23] MEDS: ALLOPURINOL 100 MG TABLET PO SCH (08:44)
[2018-04-23] MEDS: CHOLECALCIFEROL 1,000 UNIT TABLET PO SCH (08:45)
[2018-04-23] MEDS: APIXABAN 5 MG TABLET PO SCH ×2 (08:46→20:44)
[2018-04-23] MEDS: TREPROSTINIL DIOLAMINE PO SCH ×3 (08:48→20:44)
[2018-04-23] MEDS: SODIUM CHLORIDE FLUSH 10ML SYR IVF SCH ×2 (09:08→20:44)
[2018-04-23] MEDS ORDERED: METOLAZONE 2.5 MG TABLET PO ONE (09:30)
[2018-04-23] MEDS: FERROUS SULFATE 325 MG TABLET PO SCH ×2 (12:17→17:13)
[2018-04-23 12:27] VITALS: BP 99/64
[2018-04-23 20:02] VITALS: BP 100/65
[2018-04-23] MEDS: INSULIN DEGLUDEC 20 UNIT SQ SCH (20:44)
[2018-04-23] MEDS: DOCUSATE 100 MG CAPSULE PO PRN (21:27)
[2018-04-24 00:59] VITALS: BP 102/62
[2018-04-24 04:42] LABS: ANION GAP 5 mmol/L (5-15); CALCIUM 8.6 mg/dL (8.5-10.1); CHLORIDE 96 mmol/L (98-107)
[2018-04-24 04:45] LABS: CREATININE 3.26 mg/dL (0.55-1.02)
[2018-04-24] MEDS: LEVOTHYROXINE 112 MCG TABLET PO SCH (06:05)
[2018-04-24 07:18] VITALS: BP 102/69
[2018-04-24] MEDS: INSULIN LISPRO 100 UNITS/ML, PEN SQ-INSULIN SCH ×4 (07:45→21:07)
[2018-04-24] MEDS: CHOLECALCIFEROL 1,000 UNIT TABLET PO SCH (08:40)
[2018-04-24] MEDS: ALLOPURINOL 100 MG TABLET PO SCH (08:41)
[2018-04-24] MEDS: APIXABAN 5 MG TABLET PO SCH ×2 (08:41→20:54)
[2018-04-24] MEDS: FUROSEMIDE 100 MG/10 ML IV SCH ×2 (08:42→19:50)
[2018-04-24] MEDS: SODIUM CHLORIDE FLUSH 10ML SYR IVF SCH ×2 (08:45→20:54)
[2018-04-24] MEDS: TREPROSTINIL DIOLAMINE PO SCH ×3 (09:01→20:54)
[2018-04-24] MEDS: FERROUS SULFATE 325 MG TABLET PO SCH ×2 (12:43→17:11)
[2018-04-24] MEDS: ONDANSETRON 2MG/ML, 2ML IVPush PRN (13:59)
[2018-04-24 14:00] VITALS: BP 119/68
[2018-04-24] MEDS: METOLAZONE 2.5 MG TABLET PO SCH (17:11)
[2018-04-24 19:10] VITALS: BP 100/65
[2018-04-24] MEDS: INSULIN DEGLUDEC 20 UNIT SQ SCH (20:54)
[2018-04-25 02:37] VITALS: BP 108/64
[2018-04-25] MEDS: LEVOTHYROXINE 112 MCG TABLET PO SCH (05:01)
[2018-04-25 06:00] LABS: BASOPHILS # (AUTO) 0.06 x10^3/uL (0-0.1); BASOPHILS % (AUTO) 1 % (0-1); EOSINOPHILS # (AUTO) 0.16 x10^3/uL (0-0.4); EOSINOPHILS % (AUTO) 3 % (1-7); LYMPHOCYTES % (AUTO) 10 % (22-44); MD NO; MEAN CORPUSCULAR HGB CONC 32.8 g/dL (32.4-35.8); MEAN CORPUSCULAR VOLUME 94.4 fL (80-100); MEAN PLATELET VOLUME 8.1 fL (7.4-10.4); MONOCYTES % (AUTO) 5 % (2-9); NEUTROPHILS # (AUTO) 4.64 x10^3/uL (1.8-6.8); NEUTROPHILS % (AUTO) 81 % (42-75); PLATELET COUNT 191 x10^3/uL (130-400); RED BLOOD COUNT 4.04 x10^6/uL (3.82-5.3); RED CELL DISTRIBUTION WIDTH 18.9 % (9.6-15.2)
[2018-04-25 06:09] LABS: ANION GAP 9 mmol/L (5-15); CALCIUM 8.6 mg/dL (8.5-10.1); CHLORIDE 95 mmol/L (98-107); CREATININE 3.14 mg/dL (0.55-1.02)
[2018-04-25] MEDS: INSULIN LISPRO 100 UNITS/ML, PEN SQ-INSULIN SCH ×4 (07:00→20:09)
[2018-04-25 07:41] VITALS: BP 96/62
[2018-04-25] MEDS: APIXABAN 5 MG TABLET PO SCH ×2 (09:33→20:09)
[2018-04-25] MEDS: ALLOPURINOL 100 MG TABLET PO SCH (09:33)
[2018-04-25] MEDS: METOLAZONE 2.5 MG TABLET PO SCH ×2 (09:33→17:18)
[2018-04-25] MEDS: CHOLECALCIFEROL 1,000 UNIT TABLET PO SCH (09:33)
[2018-04-25] MEDS: FUROSEMIDE 100 MG/10 ML IV SCH ×2 (09:34→20:03)
[2018-04-25] MEDS: TREPROSTINIL DIOLAMINE PO SCH ×3 (09:34→20:09)
[2018-04-25] MEDS: SODIUM CHLORIDE FLUSH 10ML SYR IVF SCH ×2 (09:37→20:09)
[2018-04-25] MEDS: ALBUMIN HUMAN 25% 50 ML IV SCH ×2 (11:00→18:10)
[2018-04-25] MEDS ORDERED: LIDOCAINE-MPF 1%, 5ML ONE (13:13)
[2018-04-25] MEDS: FERROUS SULFATE 325 MG TABLET PO SCH ×2 (13:19→17:18)
[2018-04-25 14:43] VITALS: BP 117/72
[2018-04-25 18:52] VITALS: BP 103/57
[2018-04-25] MEDS: INSULIN DEGLUDEC 20 UNIT SQ SCH (20:09)
[2018-04-26 01:08] VITALS: BP 115/75
[2018-04-26] MEDS: ALBUMIN HUMAN 25% 50 ML IV SCH ×3 (02:08→20:07)
[2018-04-26 05:38] LABS: ALBUMIN 3.4 g/dL (3.4-5.0); ANION GAP 9 mmol/L (5-15); CALCIUM 8.5 mg/dL (8.5-10.1); CHLORIDE 94 mmol/L (98-107); CREATININE 2.94 mg/dL (0.55-1.02)
[2018-04-26] MEDS: LEVOTHYROXINE 112 MCG TABLET PO SCH (05:45)
[2018-04-26 06:41] VITALS: BP 116/71
[2018-04-26] MEDS: INSULIN LISPRO 100 UNITS/ML, PEN SQ-INSULIN SCH ×4 (07:00→20:20)
[2018-04-26] MEDS ORDERED: FUROSEMIDE 40 MG/4 ML ONE (10:12)
[2018-04-26 10:19] VITALS: BP 110/57
[2018-04-26] MEDS: CHOLECALCIFEROL 1,000 UNIT TABLET PO SCH (10:20)
[2018-04-26] MEDS: ALLOPURINOL 100 MG TABLET PO SCH (10:20)
[2018-04-26] MEDS: APIXABAN 5 MG TABLET PO SCH ×2 (10:20→20:08)
[2018-04-26] MEDS: TREPROSTINIL DIOLAMINE PO SCH ×3 (10:21→20:07)
[2018-04-26] MEDS: METOLAZONE 2.5 MG TABLET PO SCH ×2 (10:21→17:50)
[2018-04-26] MEDS: SODIUM CHLORIDE FLUSH 10ML SYR IVF SCH ×2 (10:21→20:07)
[2018-04-26] MEDS: FUROSEMIDE 100 MG/10 ML IV SCH ×2 (10:21→20:14)
[2018-04-26] MEDS: FERROUS SULFATE 325 MG TABLET PO SCH ×2 (13:38→17:50)
[2018-04-26 15:12] VITALS: BP 113/67
[2018-04-26 19:24] VITALS: BP 114/61
[2018-04-26] MEDS: INSULIN DEGLUDEC 20 UNIT SQ SCH (20:08)
[2018-04-27 01:33] VITALS: BP 97/61
[2018-04-27] MEDS: ALBUMIN HUMAN 25% 50 ML IV SCH ×3 (02:02→17:52)
[2018-04-27] MEDS ORDERED: FUROSEMIDE 40 MG/4 ML ONE ×2 (05:29→20:44)
[2018-04-27] MEDS: LEVOTHYROXINE 112 MCG TABLET PO SCH (05:31)
[2018-04-27] MEDS: FUROSEMIDE 100 MG/10 ML IV SCH ×2 (05:31→21:03)
[2018-04-27 05:35] VITALS: BP 117/57
[2018-04-27 06:06] LABS: ANION GAP 7 mmol/L (5-15); CALCIUM 8.5 mg/dL (8.5-10.1); CHLORIDE 91 mmol/L (98-107)
[2018-04-27 06:07] LABS: CREATININE 2.87 mg/dL (0.55-1.02)
[2018-04-27] MEDS: INSULIN LISPRO 100 UNITS/ML, PEN SQ-INSULIN SCH ×4 (07:00→21:06)
[2018-04-27] MEDS: METOLAZONE 2.5 MG TABLET PO SCH ×2 (08:09→17:52)
[2018-04-27] MEDS: APIXABAN 5 MG TABLET PO SCH ×2 (08:10→21:05)
[2018-04-27] MEDS: ALLOPURINOL 100 MG TABLET PO SCH (08:10)
[2018-04-27] MEDS: TREPROSTINIL DIOLAMINE PO SCH ×3 (08:10→21:04)
[2018-04-27] MEDS: CHOLECALCIFEROL 1,000 UNIT TABLET PO SCH (08:10)
[2018-04-27] MEDS: SODIUM CHLORIDE FLUSH 10ML SYR IVF SCH ×2 (08:11→21:04)
[2018-04-27 09:12] VITALS: BP 115/66
[2018-04-27] MEDS: FERROUS SULFATE 325 MG TABLET PO SCH ×2 (12:34→17:52)
[2018-04-27 12:41] LABS: CULTURE INDICATED? YES; MICROSCOPIC INDICATED
[2018-04-27 13:20] VITALS: BP 114/66
[2018-04-27 19:25] VITALS: BP 108/61
[2018-04-27 20:57] VITALS: BP 117/71
[2018-04-27] MEDS: INSULIN DEGLUDEC 20 UNIT SQ SCH (21:05)
[2018-04-28 00:29] VITALS: BP 104/57
[2018-04-28] MEDS: ALBUMIN HUMAN 25% 50 ML IV SCH ×3 (02:48→18:23)
[2018-04-28] MEDS: LEVOTHYROXINE 112 MCG TABLET PO SCH (05:04)
[2018-04-28 05:29] LABS: MEAN CORPUSCULAR HEMOGLOBIN 31.4 pg (27.0-34.8); MEAN CORPUSCULAR HGB CONC 32.6 g/dL (32.4-35.8); MEAN CORPUSCULAR VOLUME 96.2 fL (80-100); MEAN PLATELET VOLUME 8.5 fL (7.4-10.4); PLATELET COUNT 143 x10^3/uL (130-400); RED BLOOD COUNT 3.66 x10^6/uL (3.82-5.3); RED CELL DISTRIBUTION WIDTH 18.2 % (9.6-15.2)
[2018-04-28 05:32] LABS: ALBUMIN 3.5 g/dL (3.4-5.0); ANION GAP 8 mmol/L (5-15); CALCIUM 8.5 mg/dL (8.5-10.1); CHLORIDE 91 mmol/L (98-107); CREATININE 2.74 mg/dL (0.55-1.02)
[2018-04-28 06:00] LABS: ANISOCYTOSIS 1+; BASOPHILS % (AUTO) 0 % (0-1); EOSINOPHILS # (AUTO) 0.16 x10^3/uL (0-0.4); EOSINOPHILS % (AUTO) 3 % (1-7); LYMPHOCYTES # (AUTO) 0.76 x10^3/uL (1-3.4); LYMPHOCYTES % (AUTO) 12 % (22-44); MD MORPH REVIEW ONLY; MONOCYTES # (AUTO) 0.35 x10^3/uL (0.2-0.8); MONOCYTES % (AUTO) 6 % (2-9); NEUTROPHILS # (AUTO) 5.12 x10^3/uL (1.8-6.8); NEUTROPHILS % (AUTO) 80 % (42-75); OVALOCYTES 1+
[2018-04-28 06:01] LABS: <PLATELET ESTIMATE> ADEQUATE; <PLT MORPHOLOGY> NORMAL PLT MORPH; MICROCYTOSIS 1+
[2018-04-28] MEDS: INSULIN LISPRO 100 UNITS/ML, PEN SQ-INSULIN SCH ×4 (08:12→21:00)
[2018-04-28 08:15] VITALS: BP 109/70
[2018-04-28 08:20] VITALS: BP 101/59
[2018-04-28] MEDS ORDERED: FUROSEMIDE 40 MG/4 ML ONE ×2 (08:20→22:00)
[2018-04-28] MEDS: FUROSEMIDE 100 MG/10 ML IV SCH ×2 (08:26→19:00)
[2018-04-28] MEDS: ALLOPURINOL 100 MG TABLET PO SCH (08:27)
[2018-04-28] MEDS: CHOLECALCIFEROL 1,000 UNIT TABLET PO SCH (08:27)
[2018-04-28] MEDS: METOLAZONE 2.5 MG TABLET PO SCH ×2 (08:27→18:22)
[2018-04-28] MEDS: APIXABAN 5 MG TABLET PO SCH ×3 (08:27→22:03)
[2018-04-28] MEDS: SODIUM CHLORIDE FLUSH 10ML SYR IVF SCH ×2 (08:29→21:00)
[2018-04-28] MEDS: TREPROSTINIL DIOLAMINE PO SCH ×3 (09:00→21:00)
[2018-04-28] MEDS: FERROUS SULFATE 325 MG TABLET PO SCH ×2 (12:00→18:22)
[2018-04-28 13:25] VITALS: BP 109/65
[2018-04-28 19:18] VITALS: BP 123/73
[2018-04-28] MEDS: INSULIN DEGLUDEC 20 UNIT SQ SCH (21:00)
[2018-04-29] MEDS: ALBUMIN HUMAN 25% 50 ML IV SCH ×2 (01:44→11:32)
[2018-04-29 02:02] VITALS: BP 123/62
[2018-04-29] MEDS ORDERED: POTASSIUM CHLORIDE 20 MEQ TAB.ER.PRT PO STA (05:03)
[2018-04-29] MEDS: LEVOTHYROXINE 112 MCG TABLET PO SCH (05:10)
[2018-04-29 05:31] LABS: ANION GAP 8 mmol/L (5-15); CALCIUM 8.4 mg/dL (8.5-10.1); CHLORIDE 90 mmol/L (98-107)
[2018-04-29 05:33] LABS: CREATININE 2.57 mg/dL (0.55-1.02)
[2018-04-29] MEDS ORDERED: POTASSIUM CHLORIDE 20 MEQ TAB.ER.PRT PO SCH ×2 (07:00→08:00)
[2018-04-29] MEDS: INSULIN LISPRO 100 UNITS/ML, PEN SQ-INSULIN SCH ×4 (07:00→20:49)
[2018-04-29 07:42] VITALS: BP 97/56
[2018-04-29] MEDS: CHOLECALCIFEROL 1,000 UNIT TABLET PO SCH (08:52)
[2018-04-29] MEDS: APIXABAN 5 MG TABLET PO SCH ×2 (08:52→20:49)
[2018-04-29] MEDS: ALLOPURINOL 100 MG TABLET PO SCH (08:52)
[2018-04-29] MEDS: TREPROSTINIL DIOLAMINE PO SCH ×3 (08:53→20:46)
[2018-04-29] MEDS: SODIUM CHLORIDE FLUSH 10ML SYR IVF SCH ×2 (08:53→20:49)
[2018-04-29] MEDS ORDERED: POTASSIUM CHLORIDE 20 MEQ TAB.ER.PRT PO ONE (09:00)
[2018-04-29 11:06] VITALS: BP 108/66
[2018-04-29] MEDS: DOCUSATE 100 MG CAPSULE PO PRN (11:16)
[2018-04-29] MEDS: METOLAZONE 2.5 MG TABLET PO SCH (11:16)
[2018-04-29] MEDS: POTASSIUM CHLORIDE 20 MEQ PACKET PO SCH ×2 (11:17→16:47)
[2018-04-29] MEDS: FERROUS SULFATE 325 MG TABLET PO SCH ×2 (11:17→16:49)
[2018-04-29] MEDS ORDERED: FUROSEMIDE 80 MG TABLET ONE (11:27)
[2018-04-29] MEDS ORDERED: FUROSEMIDE 80 MG TABLET PO SCH ×2 (11:30→17:00)
[2018-04-29 12:01] LABS: ANION GAP 5 mmol/L (5-15); CALCIUM 9.2 mg/dL (8.5-10.1); CHLORIDE 92 mmol/L (98-107)
[2018-04-29 12:02] LABS: CREATININE 2.69 mg/dL (0.55-1.02)
[2018-04-29] MEDS ORDERED: SIMETHICONE DROPS 40 MG/0.6 ML BOTTLE PO PRN (12:30)
[2018-04-29] MEDS ORDERED: BISACODYL 10 MG SUPP PR PRN (13:00)
[2018-04-29 14:19] VITALS: BP 114/57
[2018-04-29] MEDS: FUROSEMIDE 80 MG TABLET PO SCH (16:49)
[2018-04-29 16:50] VITALS: BP 90/52
[2018-04-29 20:30] VITALS: BP 116/61
[2018-04-29] MEDS: INSULIN DEGLUDEC 20 UNIT SQ SCH (20:50)
[2018-04-30 01:50] VITALS: BP 119/67
[2018-04-30] MEDS: LEVOTHYROXINE 112 MCG TABLET PO SCH (05:10)
[2018-04-30 05:51] LABS: ALBUMIN 3.8 g/dL (3.4-5.0); ANION GAP 7 mmol/L (5-15); BASOPHILS # (AUTO) 0.04 x10^3/uL (0-0.1); BASOPHILS % (AUTO) 1 % (0-1); CALCIUM 8.8 mg/dL (8.5-10.1); CHLORIDE 91 mmol/L (98-107); EOSINOPHILS # (AUTO) 0.16 x10^3/uL (0-0.4); EOSINOPHILS % (AUTO) 3 % (1-7); LYMPHOCYTES # (AUTO) 0.64 x10^3/uL (1-3.4); LYMPHOCYTES % (AUTO) 11 % (22-44); MD NO; MEAN CORPUSCULAR HEMOGLOBIN 30.6 pg (27.0-34.8); MEAN CORPUSCULAR VOLUME 95.6 fL (80-100); MEAN PLATELET VOLUME 8.6 fL (7.4-10.4); MONOCYTES # (AUTO) 0.27 x10^3/uL (0.2-0.8); MONOCYTES % (AUTO) 5 % (2-9); NEUTROPHILS # (AUTO) 4.79 x10^3/uL (1.8-6.8); NEUTROPHILS % (AUTO) 81 % (42-75); PLATELET COUNT 168 x10^3/uL (130-400); RED BLOOD COUNT 4.09 x10^6/uL (3.82-5.3); RED CELL DISTRIBUTION WIDTH 18.6 % (9.6-15.2)
[2018-04-30 05:54] LABS: ALANINE AMINOTRANSFERASE 9 U/L (12-78); ALKALINE PHOSPHATASE 70 U/L (45-117); BILIRUBIN,TOTAL 1.1 mg/dL (0.2-1.0); CREATININE 2.47 mg/dL (0.55-1.02); TOTAL PROTEIN 6.9 g/dL (6.4-8.2)
[2018-04-30 07:00] VITALS: BP 119/54
[2018-04-30] MEDS: INSULIN LISPRO 100 UNITS/ML, PEN SQ-INSULIN SCH ×4 (07:00→20:25)
[2018-04-30] MEDS: POTASSIUM CHLORIDE 20 MEQ PACKET PO SCH ×3 (08:00→16:50)
[2018-04-30] MEDS: POLYETHYLENE GLYCOL 17 GM PACKET PO SCH (09:00)
[2018-04-30 09:01] LABS: CLOSTRIDIUM DIFFICILE ANTIGEN NEGATIVE; CLOSTRIDIUM DIFFICILE TOXIN NEGATIVE (Negative)
[2018-04-30] MEDS: ALLOPURINOL 100 MG TABLET PO SCH (09:55)
[2018-04-30] MEDS: POTASSIUM CHLORIDE 20 MEQ TAB.ER.PRT PO SCH (09:55)
[2018-04-30] MEDS: CHOLECALCIFEROL 1,000 UNIT TABLET PO SCH (09:55)
[2018-04-30] MEDS: APIXABAN 5 MG TABLET PO SCH ×2 (09:55→20:25)
[2018-04-30] MEDS: FUROSEMIDE 80 MG TABLET PO SCH ×2 (09:56→16:50)
[2018-04-30] MEDS: TREPROSTINIL DIOLAMINE PO SCH ×3 (09:56→20:25)
[2018-04-30] MEDS ORDERED: AcetaZOLAMIDE INJ 500 MG IVPush ONE (12:00)
[2018-04-30] MEDS: SODIUM CHLORIDE FLUSH 10ML SYR IVF SCH ×2 (12:46→20:29)
[2018-04-30] MEDS: FERROUS SULFATE 325 MG TABLET PO SCH ×2 (12:46→16:50)
[2018-04-30 14:18] VITALS: BP 122/64
[2018-04-30 19:21] VITALS: BP 109/64
[2018-04-30] MEDS: INSULIN DEGLUDEC 20 UNIT SQ SCH (20:24)
[2018-05-01 00:15] VITALS: BP 109/66
[2018-05-01 06:04] LABS: BASOPHILS # (AUTO) 0.05 x10^3/uL (0-0.1); BASOPHILS % (AUTO) 1 % (0-1); EOSINOPHILS # (AUTO) 0.11 x10^3/uL (0-0.4); EOSINOPHILS % (AUTO) 2 % (1-7); LYMPHOCYTES # (AUTO) 0.71 x10^3/uL (1-3.4); LYMPHOCYTES % (AUTO) 12 % (22-44); MD NO; MEAN CORPUSCULAR HEMOGLOBIN 31.3 pg (27.0-34.8); MEAN CORPUSCULAR HGB CONC 33.1 g/dL (32.4-35.8); MEAN CORPUSCULAR VOLUME 94.7 fL (80-100); MEAN PLATELET VOLUME 8.4 fL (7.4-10.4); MONOCYTES # (AUTO) 0.33 x10^3/uL (0.2-0.8); MONOCYTES % (AUTO) 6 % (2-9); NEUTROPHILS # (AUTO) 4.58 x10^3/uL (1.8-6.8); NEUTROPHILS % (AUTO) 79 % (42-75); PLATELET COUNT 159 x10^3/uL (130-400); RED BLOOD COUNT 3.59 x10^6/uL (3.82-5.3)
[2018-05-01 06:17] LABS: ALANINE AMINOTRANSFERASE 8 U/L (12-78); ALBUMIN 3.3 g/dL (3.4-5.0); ANION GAP 5 mmol/L (5-15); CALCIUM 8.7 mg/dL (8.5-10.1); CHLORIDE 91 mmol/L (98-107); CREATININE 2.31 mg/dL (0.55-1.02)
[2018-05-01 06:18] LABS: ALKALINE PHOSPHATASE 69 U/L (45-117); BILIRUBIN,TOTAL 1.3 mg/dL (0.2-1.0); TOTAL PROTEIN 6.2 g/dL (6.4-8.2)
[2018-05-01] MEDS: LEVOTHYROXINE 112 MCG TABLET PO SCH (06:47)
[2018-05-01 06:50] VITALS: BP 112/61
[2018-05-01] MEDS: INSULIN LISPRO 100 UNITS/ML, PEN SQ-INSULIN SCH ×4 (07:00→21:00)
[2018-05-01] MEDS: POTASSIUM CHLORIDE 20 MEQ PACKET PO SCH ×3 (08:00→16:18)
[2018-05-01] MEDS ORDERED: AcetaZOLAMIDE INJ 500 MG IVPush SCH (08:30)
[2018-05-01] MEDS: FUROSEMIDE 80 MG TABLET PO SCH ×2 (08:34→16:38)
[2018-05-01] MEDS: ALLOPURINOL 100 MG TABLET PO SCH (08:34)
[2018-05-01] MEDS: POTASSIUM CHLORIDE 20 MEQ TAB.ER.PRT PO SCH (08:34)
[2018-05-01] MEDS: APIXABAN 5 MG TABLET PO SCH ×2 (08:34→21:32)
[2018-05-01] MEDS: CHOLECALCIFEROL 1,000 UNIT TABLET PO SCH (08:34)
[2018-05-01] MEDS: SODIUM CHLORIDE FLUSH 10ML SYR IVF SCH ×2 (08:35→21:33)
[2018-05-01] MEDS: POLYETHYLENE GLYCOL 17 GM PACKET PO SCH (08:35)
[2018-05-01] MEDS: CEFDINIR 300 MG CAPSULE PO SCH (08:35)
[2018-05-01] MEDS: TREPROSTINIL DIOLAMINE PO SCH ×3 (08:36→21:00)
[2018-05-01] MEDS: FERROUS SULFATE 325 MG TABLET PO SCH ×2 (12:10→16:38)
[2018-05-01 13:07] VITALS: BP 104/59
[2018-05-01] MEDS: ONDANSETRON 2MG/ML, 2ML IVPush PRN (13:35)
[2018-05-01 19:38] VITALS: BP 110/64
[2018-05-01] MEDS: INSULIN DEGLUDEC 20 UNIT SQ SCH (21:00)
[2018-05-02 03:29] VITALS: BP 95/60
[2018-05-02] MEDS: LEVOTHYROXINE 112 MCG TABLET PO SCH (06:44)
[2018-05-02 06:54] LABS: ANION GAP 5 mmol/L (5-15); CALCIUM 8.9 mg/dL (8.5-10.1); CHLORIDE 90 mmol/L (98-107)
[2018-05-02] MEDS: INSULIN LISPRO 100 UNITS/ML, PEN SQ-INSULIN SCH ×4 (07:00→21:59)
[2018-05-02 07:10] VITALS: BP 99/65
[2018-05-02] MEDS ORDERED: AcetaZOLAMIDE INJ 500 MG IVPush ONE (07:30)
[2018-05-02] MEDS: POLYETHYLENE GLYCOL 17 GM PACKET PO SCH (08:15)
[2018-05-02] MEDS: CEFDINIR 300 MG CAPSULE PO SCH (09:00)
[2018-05-02] MEDS: POTASSIUM CHLORIDE 20 MEQ TAB.ER.PRT PO SCH (09:00)
[2018-05-02] MEDS: APIXABAN 5 MG TABLET PO SCH ×2 (09:00→21:55)
[2018-05-02] MEDS: FUROSEMIDE 80 MG TABLET PO SCH ×2 (09:00→21:55)
[2018-05-02] MEDS: TREPROSTINIL DIOLAMINE PO SCH ×3 (09:01→21:58)
[2018-05-02] MEDS: CHOLECALCIFEROL 1,000 UNIT TABLET PO SCH (09:01)
[2018-05-02] MEDS: SODIUM CHLORIDE FLUSH 10ML SYR IVF SCH ×2 (09:01→22:01)
[2018-05-02] MEDS: ALLOPURINOL 100 MG TABLET PO SCH (09:01)
[2018-05-02 13:36] VITALS: BP 95/55
[2018-05-02] MEDS: FERROUS SULFATE 325 MG TABLET PO SCH ×2 (14:22→16:28)
[2018-05-02 16:27] VITALS: BP 108/59
[2018-05-02 19:31] VITALS: BP 113/67
[2018-05-02] MEDS: INSULIN DEGLUDEC 20 UNIT SQ SCH (21:59)
[2018-05-03 03:04] VITALS: BP 122/63
[2018-05-03 05:27] LABS: ANION GAP 3 mmol/L (5-15); CALCIUM 8.5 mg/dL (8.5-10.1); CHLORIDE 90 mmol/L (98-107)
[2018-05-03 05:29] LABS: CREATININE 2.37 mg/dL (0.55-1.02)
[2018-05-03] MEDS: LEVOTHYROXINE 112 MCG TABLET PO SCH (06:37)
[2018-05-03 06:50] VITALS: BP 116/47
[2018-05-03] MEDS: INSULIN LISPRO 100 UNITS/ML, PEN SQ-INSULIN SCH ×4 (07:00→20:39)
[2018-05-03] MEDS: POTASSIUM CHLORIDE 20 MEQ TAB.ER.PRT PO SCH (08:20)
[2018-05-03] MEDS: CEFDINIR 300 MG CAPSULE PO SCH (08:20)
[2018-05-03] MEDS: CHOLECALCIFEROL 1,000 UNIT TABLET PO SCH (08:20)
[2018-05-03] MEDS: APIXABAN 5 MG TABLET PO SCH ×2 (08:20→20:39)
[2018-05-03] MEDS: FUROSEMIDE 80 MG TABLET PO SCH ×2 (08:21→17:07)
[2018-05-03] MEDS: ALLOPURINOL 100 MG TABLET PO SCH (08:21)
[2018-05-03] MEDS: POLYETHYLENE GLYCOL 17 GM PACKET PO SCH (08:28)
[2018-05-03] MEDS: TREPROSTINIL DIOLAMINE PO SCH ×3 (08:29→20:39)
[2018-05-03] MEDS: SODIUM CHLORIDE FLUSH 10ML SYR IVF SCH ×2 (08:29→20:41)
[2018-05-03] MEDS: FERROUS SULFATE 325 MG TABLET PO SCH ×2 (11:26→17:07)
[2018-05-03 12:49] VITALS: BP 114/64
[2018-05-03 19:56] VITALS: BP 121/68
[2018-05-03] MEDS: INSULIN DEGLUDEC 20 UNIT SQ SCH (20:39)
[2018-05-04 01:21] VITALS: BP 108/65
[2018-05-04 05:23] LABS: CHLORIDE 89 mmol/L (98-107)
[2018-05-04 05:28] LABS: ANION GAP 5 mmol/L (5-15); CALCIUM 8.5 mg/dL (8.5-10.1); CREATININE 2.39 mg/dL (0.55-1.02)
[2018-05-04] MEDS: LEVOTHYROXINE 112 MCG TABLET PO SCH (05:53)
[2018-05-04] MEDS: INSULIN LISPRO 100 UNITS/ML, PEN SQ-INSULIN SCH ×2 (07:00→11:00)
[2018-05-04 08:55] VITALS: BP 101/61
[2018-05-04] MEDS: POLYETHYLENE GLYCOL 17 GM PACKET PO SCH (09:00)
[2018-05-04] MEDS: TREPROSTINIL DIOLAMINE PO SCH (09:00)
[2018-05-04] MEDS: CEFDINIR 300 MG CAPSULE PO SCH (09:46)
[2018-05-04] MEDS: APIXABAN 5 MG TABLET PO SCH (09:46)
[2018-05-04] MEDS: POTASSIUM CHLORIDE 20 MEQ TAB.ER.PRT PO SCH (09:47)
[2018-05-04] MEDS: ALLOPURINOL 100 MG TABLET PO SCH (09:47)
[2018-05-04] MEDS: CHOLECALCIFEROL 1,000 UNIT TABLET PO SCH (09:47)
[2018-05-04] MEDS: SODIUM CHLORIDE FLUSH 10ML SYR IVF SCH (09:47)
[2018-05-04] MEDS ORDERED: SIME40DR7 PO (11:22)
[2018-05-04] MEDS ORDERED: CEFD300C37 PO (11:22)
[2018-05-04] MEDS ORDERED: LEVO112T2 PO (11:22)
[2018-05-04] MEDS ORDERED: POTA20TA6 PO (11:22)
[2018-05-04] MEDS ORDERED: ACET325T14 PO (11:22)
[2018-05-04] MEDS ORDERED: POLY17PO5 PO (11:22)
[2018-05-04] MEDS ORDERED: FURO80TA3 PO (11:22)
[2018-05-04] MEDS ORDERED: ONDA4TAB13 SL (11:22)
[2018-05-04] MEDS: FERROUS SULFATE 325 MG TABLET PO SCH (12:07)
[2018-05-04] MEDS ORDERED: ASPI-515 PO (12:28)
[2018-05-04] MEDS ORDERED: CLINDAMYCIN 150 MG/ML, 6ML ONE (12:33)
[2018-05-04] MEDS ORDERED: ROPIvacaine/PF 0.5%, 30 ML ONE (12:33)
[2018-05-04] MEDS ORDERED: BUPIVACAINE/PF 0.5% ONE (12:33)
[2018-05-04 13:26] VITALS: BP 104/68
[2018-05-04] MEDS ORDERED: OXYcodone 5 MG/5 ML ORAL.SOL UDC ONE (15:17)
[2018-05-04] MEDS ORDERED: FENTANYL PF 100 MCG/2ML ONE (15:17)
[2018-05-04] MEDS ORDERED: hydrALAzine 20 MG/ML, 1ML ONE (15:17)
[2018-05-05] MEDS ORDERED: FUROSEMIDE 80 MG TABLET PO SCH (09:00)
== END 2018-05-04 18:20 | DRG 280 ==
LOC: ED 14:43 → EDIP 15:10 → 5SO 16:41
PROVIDERS: ADMIT Internal Medicine; ATTEND Internal Medicine
PROC: 0W9G3ZZ Drainage of Peritoneal Cavity, Percutaneous Approach (ICD-10-PCS; principal; 2018-04-25)
PROC: 0T9B70Z Drainage of Bladder with Drainage Device, Via Natural or Artificial Opening (ICD-10-PCS; 2018-04-27)
DX: I21.4 Non-ST elevation (NSTEMI) myocardial infarction (principal); I26.09 Other pulmonary embolism with acute cor pulmonale; I50.33 Acute on chronic diastolic (congestive) heart failure; J96.20 Acute and chronic respiratory failure, unspecified whether with hypoxia or hypercapnia; N18.4 Chronic kidney disease, stage 4 (severe); N17.9 Acute kidney failure, unspecified; D68.69 Other thrombophilia; E87.1 Hypo-osmolality and hyponatremia; E87.3 Alkalosis; J98.11 Atelectasis; N39.0 Urinary tract infection, site not specified; R18.8 Other ascites; E78.5 Hyperlipidemia, unspecified; E11.22 Type 2 diabetes mellitus with diabetic chronic kidney disease; E11.65 Type 2 diabetes mellitus with hyperglycemia; R31.9 Hematuria, unspecified; I07.1 Rheumatic tricuspid insufficiency; B96.20 Unspecified Escherichia coli [E. coli] as the cause of diseases classified elsewhere; E03.9 Hypothyroidism, unspecified; E87.6 Hypokalemia; I35.8 Other nonrheumatic aortic valve disorders; I48.0 Paroxysmal atrial fibrillation; I48.2 Chronic atrial fibrillation; K59.00 Constipation, unspecified; R04.0 Epistaxis; Z79.899 Other long term (current) drug therapy; Z79.4 Long term (current) use of insulin; Z90.49 Acquired absence of other specified parts of digestive tract; Z90.89 Acquired absence of other organs; I25.2 Old myocardial infarction; Z82.49 Family history of ischemic heart disease and other diseases of the circulatory system; Z87.891 Personal history of nicotine dependence; Z99.81 Dependence on supplemental oxygen
CPT/HCPCS: 36415; 49083; 71045; 74176; 76705; 80048; 80053; 81001; 82040; 82306; 82962; 83735; 83880; 83970; 84100; 84436; 84439; 84443; 84481; 84484; 84550; 85025; 85610; 87077; 87086; 87186; 87324; 93005; 93306; 96374; 99291; G0378; J1940; J2405; J2795; J3490; P9047; J1120; J1815